=== PATIENT | male | born 1965 | race American Indian/Alaskan Native ===

== ENCOUNTER 2016-08-27 06:26 | Emergency (ER) | payer SELFPAY ==
[2016-08-27 07:20] LABS: Basophils % (Auto) 0.4 % (0.0-1.8); Eosinophils % (Auto) 2.2 % (0.0-4.3); Hematocrit 45.9 % (35.5-45.6); Hemoglobin 15.5 gm/dl (11.8-15.2); Mean Corpuscular HGB Conc 34 % (32-34); Mean Corpuscular Hemoglobin 35 pg (28-32); Mean Corpuscular Volume 102 fl (84-94); Platelet Count 246 K/mm3 (140-440); Red Blood Count 4.49 M/mm3 (3.65-5.03); Red Cell Distribution Width 13.4 % (13.2-15.2); White Blood Count 11.9 K/mm3 (4.5-11.0)
[2016-08-27 07:41] LABS: Creatine Kinase MB 3.1 ng/mL (0.0-4.0)
[2016-08-27 07:42] LABS: Alanine Aminotransferase 19 units/L (7-56); Albumin 3.5 g/dL (3.9-5); Albumin/Globulin Ratio 1.7 %; Alkaline Phosphatase 47 units/L (35-129); Anion Gap 17 mmol/L; BUN/Creatinine Ratio 11.11; Blood Urea Nitrogen 10 mg/dL (9-20); Calcium 8.7 mg/dL (8.4-10.2); Carbon Dioxide 25 mmol/L (22-30); Chloride 99.3 mmol/L (98-107); Creatine Kinase 141 units/L (55-170); Glucose 98 mg/dL (75-100); Sodium 137 mmol/L (137-145); Total Protein 5.6 g/dL (6.3-8.2)
[2016-08-27 17:05] LABS: Urine Drugs of Abuse Note Disclamer
[2016-08-27 17:14] LABS: Bilirubin,Urine NEG (Negative); Blood,Urine NEG (Negative); Ketones,Urine TR mg/dL (Negative); Leukocyte Esterase,Urine NEG (Negative); Mucus,Urine FEW /HPF; Nitrite,Urine NEG (Negative); Urobilinogen,Urine < 2.0 mg/dL (<2.0)
[2016-08-27] MEDS ORDERED: NACL 0.9% 1000 ML 1,000 ML IV ONE (17:30)
--- NOTE | 2016-08-27 17:32 | Emergency Department Report ---
HPI - General Chief Complaint: Syncope Time Seen by Provider: 08/27/16 16:47 - HPI HPI: The patient is 51 yo male whom presents for evaluation of abdominal pain and flank pain. The patient reports bilateral flank pain and epigastric abdominal pain for greater than the past 12 hours, a salicylate severity, crampy in quality, constant since onset. The patient also reports severe lightheadedness is exacerbated with physical activity, improved with lying down and rest, onset 21 hours ago last night. The patient shares that he is experiencing episode of syncope shortly after the onset of his lightheadedness. The patient denies fever , headache, neck pain or stiffness, current paresthesias, focal motor weakness, blurry vision, ear pain, tinnitus, chest pain, hemoptysis, dyspnea, abdominal pain, confusion or altered mental status, or recent URI or diarrhea. ED Past Medical Hx - Past Medical History Previous Medical History?: Yes Hx Hypertension: Yes (BORDERLINE-NO MEDS) Additional medical history: ULCERS - Surgical History Past Surgical History?: Yes Additional Surgical History: carpal tunnel - Social History Smoking Status: Current Every Day Smoker Substance Use Type: Alcohol - Medications Home Medications: Home Medications Medication Instructions Recorded Confirmed Last Taken Type Pantoprazole [Protonix] 40 mg PO BID #30 tablet 04/12/13 08/31/15 Unknown Rx hydrOXYzine PAMOATE [Vistaril] 50 mg PO Q6HR PRN #20 capsule 06/12/15 08/31/15 Unknown Rx Erythromycin [Erythromycin Ophth 10 applic OP TID #1 tube 08/31/15 Unknown Rx Oint] Cyclobenzaprine [Flexeril] 10 mg PO TID PRN #15 tablet 02/02/16 Unknown Rx Ibuprofen [Motrin] 800 mg PO Q8HR PRN #15 tablet 02/02/16 Unknown Rx Omeprazole Magnesium [PriLOSEC Otc] 20 mg PO BID #30 tab 08/27/16 Unknown Rx traMADol [Ultram 50 MG tab] 50 mg PO Q6HR PRN #15 tablet 08/27/16 Unknown Rx ED Review of Systems ROS: Stated complaint: PASSING OUT/ NECK PAIN/NUMBNESS FEET AND LEGS Other details as noted in HPI Constitutional: denies: fever; reports lightheadedness and syncope ENT: denies: throat or neck pain Respiratory: denies: cough, shortness of breath Cardiovascular: denies: chest pain Endocrine: denies unexplained weight loss or gain Gastrointestinal: reports abdominal pain, nausea Genitourinary: denies: dysuria Musculoskeletal: denies: leg swelling Skin: denies: rash Neurological: denies: headache Hematological/Lymphatic: denies: easy bleeding or easy bruising Psych: denies sadness or hopelessness Physical Exam - Physical Exam Vital Signs: Vital Signs 08/27/16 06:50 Temperature 98.3 F Pulse Rate 79 Respiratory 18 Rate Blood Pressure 108/78 O2 Sat by Pulse 100 Oximetry Physical Exam: General: well-nourished, well-developed, no acute distress Head: Normocephalic, atraumatic Eyes: normal sclera, PERRL, EOM intact ENT: Mucous membranes are pale and dry Neck: No neck stiffness, no cervical adenopathy Respiratory: Breath sounds equal bilaterally, no wheezing, rales, or rhonchi Cardio: S1 and S2 present, no murmurs, rubs, gallops, capillary refill is delayed Abdomen: Normoactive bowel sounds, soft abdomen, epigastric tenderness to palpation present, no rigidity, no guarding or rebound tenderness Chest WALL/Back: No tenderness to palpation of the chest wall, bilateral CVA tenderness with superficial palpation Musc: No pitting edema Skin: No rash Neuro: alert oriented x4, normal cognition, speech normal, no facial drooping, no uvula or tongue deviation on protrusion, no deficit with rotation of neck or shoulder shrug, no obvious gross motor deficit in the upper or lower extremities with flexion or extension at the shoulder, elbow, wrist, hip, knee, or ankle bilaterally, no obvious gross sensation deficit, 2+ symmetric reflexes on DTR testing, no coordination deficit with [id number] or [id number] testing, romberg negative, patient able to to ambulate without abnormal gait Psych: Normal affect ED Course Vital Signs 08/27/16 06:50 Temperature 98.3 F Pulse Rate 79 Respiratory 18 Rate Blood Pressure 108/78 O2 Sat by Pulse 100 Oximetry ED Medical Decision Making - Lab Data Result diagrams: 08/27/16 07:09 08/27/16 07:09 - Medical Decision Making The patient was seen and examined by myself. The patient is placed on a campus director and continuous pulse ox. On initial evaluation, the patient was found to be in no distress. Evaluation orders were placed. EKG is negative for findings suggestive of acute cardiac ischemia or infarct. The patient is given 1 L normal saline fluid bolus for treatment of dehydration, and a tablet of Tylenol 3 for his pain. Lab results reveal elevated hemoglobin and hematocrit, consistent with hemoconcentration and exam findings of dehydration, and otherwise labs were grossly unremarkable including normal LFTs, renal function, and urinalysis. The patient was reevaluated and reported that their symptoms were markedly improved. The patient is stable for discharge with outpatient follow-up. The patient is given follow-up and return instructions. The patient expressed understanding and agreed with the plan. The patient is discharged in stable condition. Critical care attestation.: If time is entered above; I have spent that time in minutes in the direct care of this critically ill patient, excluding procedure time. ED Disposition Clinical Impression: Dehydration, Bilateral flank pain, Abdominal pain, acute, epigastric, Orthostatic syncope Disposition: DISCHARGED TO HOME OR SELFCARE Is pt being admited?: No Does the pt Need Aspirin: No Condition: Stable Instructions: Syncope (ED), Acute Abdominal Pain (ED), Flank Pain (ED) Prescriptions: Omeprazole Magnesium [PriLOSEC Otc] 20 mg PO BID #30 tab traMADol [Ultram 50 MG tab] 50 mg PO Q6HR PRN #15 tablet PRN Reason: Pain Referrals: PRIMARY CARE, [Primary Care Provider] - 3-5 Days Time of Disposition: 17:32
[2016-08-27] MEDS ORDERED: PEPCID PO ONE (18:11)
[2016-08-27] MEDS ORDERED: TYLENOL #3 PO ONE (18:11)
[2016-08-27 19:09] VITALS: BP 134/92
== END 2016-08-27 19:09 | disposition home or self-care (01) ==
LOC: ED 06:26
DX: E86.0 Dehydration (principal); R55 Syncope and collapse; R10.13 Epigastric pain; F17.200 Nicotine dependence, unspecified, uncomplicated
CPT/HCPCS: 36415; 80053; 80307; 81001; 82550; 82553; 84484; 85025; 93005; 93010; 96360; 99284; J7030

== ENCOUNTER 2016-12-17 05:00 | Inpatient (IN) | payer OTHER ==
[2016-12-17] MEDS ORDERED: NITRO-BID 2% TP ONE ×2 (05:13→05:55)
[2016-12-17] MEDS ORDERED: MORPHINE ONE (05:17)
[2016-12-17] MEDS ORDERED: ZOFRAN ONE (05:17)
[2016-12-17] MEDS ORDERED: ZOFRAN IV ONE (05:56)
[2016-12-17] MEDS ORDERED: MORPHINE IV ONE ×2 (05:56→08:59)
[2016-12-17 06:47] LABS: Basophils % (Auto) 0.7 % (0.0-1.8); Eosinophils % (Auto) 2.2 % (0.0-4.3); Hematocrit 45.7 % (35.5-45.6); Hemoglobin 15.4 gm/dl (11.8-15.2); Mean Corpuscular HGB Conc 34 % (32-34); Mean Corpuscular Hemoglobin 34 pg (28-32); Mean Corpuscular Volume 101 fl (84-94); Platelet Count 312 K/mm3 (140-440); Red Blood Count 4.52 M/mm3 (3.65-5.03); Red Cell Distribution Width 13.9 % (13.2-15.2); White Blood Count 8.5 K/mm3 (4.5-11.0)
[2016-12-17 06:57] LABS: INR 1.65 (0.87-1.13)
[2016-12-17 07:02] LABS: Partial Thromboplastin Time 76.9 Sec. (24.2-36.6)
[2016-12-17 07:07] LABS: Anion Gap 18 mmol/L; Blood Urea Nitrogen 11 mg/dL (9-20); Calcium 8.6 mg/dL (8.4-10.2); Carbon Dioxide 20 mmol/L (22-30); Chloride 102.9 mmol/L (98-107); Creatine Kinase 184 units/L (55-170); Glucose 97 mg/dL (75-100); Potassium 3.8 mmol/L (3.6-5.0); Sodium 137 mmol/L (137-145)
--- NOTE | 2016-12-17 07:54 | XRay Report ---
AP CHEST: HISTORY: chest pain AP view of the chest demonstrates a normal mediastinal and cardiac contour with clear lungs and normal bony and soft tissue structures. IMPRESSION: Unremarkable AP chest.
[2016-12-17 07:58] LABS: Alanine Aminotransferase 17 units/L (7-56); Albumin 3.3 g/dL (3.9-5); Albumin/Globulin Ratio 1.3 %; Alkaline Phosphatase 49 units/L (35-129); Total Protein 5.8 g/dL (6.3-8.2)
[2016-12-17 07:59] LABS: Bilirubin,Direct < 0.2 mg/dL (0-0.2)
--- NOTE | 2016-12-17 10:15 | Emergency Department Report ---
ED Chest Pain HPI - General Chief Complaint: Chest Pain Stated Complaint: CP Time Seen by Provider: 12/17/16 07:38 Source: patient, EMS Mode of arrival: Stretcher Limitations: No Limitations - History of Present Illness Initial Comments: 51 yo Male with a past medical history hypertension, peptic ulcer disease, and tobacco use presents to the Hospital complaint is chest pain that started at 4 AM. Patient had waken up and started having left-sided chest pressure extending into his left arm with associated left hand paresthesias. Pain rated 8/10 in intensity. Waxes and wanes in intensity. Positive associated nausea, diaphoresis, shortness of breath, in asystole. Denies vomiting or calf tenderness. The patient traveled from [place] a couple weeks ago. No history of previous stress test or cardiac cath. His mother has significant CAD including bypass surgery and developed cardiac problems in her 50s. Patient has been noncompliant with his blood pressure medication 6 months. Severity scale (0 -10): 10 - Related Data Previous Rx's Medication Instructions Recorded Last Taken Type Pantoprazole [Protonix] 40 mg PO BID #30 tablet 04/12/13 Unknown Rx hydrOXYzine PAMOATE [Vistaril] 50 mg PO Q6HR PRN #20 capsule 06/12/15 Unknown Rx Erythromycin [Erythromycin Ophth 10 applic OP TID #1 tube 08/31/15 Unknown Rx Oint] Cyclobenzaprine [Flexeril] 10 mg PO TID PRN #15 tablet 02/02/16 Unknown Rx Ibuprofen [Motrin] 800 mg PO Q8HR PRN #15 tablet 02/02/16 Unknown Rx HYDROcodone/APAP 7.5-325 [Dille 1 each PO Q8HR PRN #12 tablet 08/27/16 Unknown Rx 7.5-325 mg TAB] Omeprazole Magnesium [PriLOSEC Otc] 20 mg PO BID #30 tab 08/27/16 Unknown Rx Allergies Allergy/AdvReac Type Severity Reaction Status Date / Time No Known Allergies Allergy Verified 08/30/15 17:32 Heart Score - HEART Score History: Slightly suspicious EKG: Normal Age: 45-65 Risk factors: > 3 risk factors or hx of atherosclerotic disease Troponin: < normal limit HEART Score: 3 ED Review of Systems ROS: Stated complaint: CP Other details as noted in HPI Comment: All other systems reviewed and negative Other: Constitutional: No fevers chills Eyes: No eye pain visual changes ENT: No ear pain or throat pain Neck: Denies pain Respiratory: Denies cough wheezing Cardiovascular: Denies palpitations, syncope GI: Denies abdominal pain, vomiting, diarrhea : Denies dysuria Musculoskeletal: Denies back pain Skin: Denies rash, lesions, erythema Neurologic: Denies headache, numbness, weakness Psychiatric: Denies suicidal ideation, hallucinations ED Past Medical Hx - Past Medical History Previous Medical History?: Yes Hx Hypertension: Yes (BORDERLINE-NO MEDS) Additional medical history: ULCERS - Surgical History Past Surgical History?: Yes Additional Surgical History: carpal tunnel - Social History Smoking Status: Current Every Day Smoker Substance Use Type: Alcohol - Medications Home Medications: Home Medications Medication Instructions Recorded Confirmed Last Taken Type Pantoprazole [Protonix] 40 mg PO BID #30 tablet 04/12/13 08/31/15 Unknown Rx hydrOXYzine PAMOATE [Vistaril] 50 mg PO Q6HR PRN #20 capsule 06/12/15 08/31/15 Unknown Rx Erythromycin [Erythromycin Ophth 10 applic OP TID #1 tube 08/31/15 Unknown Rx Oint] Cyclobenzaprine [Flexeril] 10 mg PO TID PRN #15 tablet 02/02/16 Unknown Rx Ibuprofen [Motrin] 800 mg PO Q8HR PRN #15 tablet 02/02/16 Unknown Rx HYDROcodone/APAP 7.5-325 [Dille 1 each PO Q8HR PRN #12 tablet 08/27/16 Unknown Rx 7.5-325 mg TAB] Omeprazole Magnesium [PriLOSEC Otc] 20 mg PO BID #30 tab 08/27/16 Unknown Rx ED Physical Exam - General Limitations: No Limitations - Other Other exam information: General: No limitations, patient is alert in no acute distress Head exam: Atraumatic, normocephalic Eyes exam: Normal appearance, pupils equal reactive to light, extraocular movements intact ENT: Moist mucous membrane, normal oropharynx Neck exam: Normal inspection, full range of motion, no meningismus nontender Respiratory exam: Clear to auscultation bilateral, no wheezes, rales, crackles Cardiovascular: Normal rate and rhythm, normal heart sounds, chest wall nontender Abdomen: Soft, nondistended, and nontender, with normal bowel sounds, no rebound, or guarding Extremity: Full range of motion normal inspection no deformity, no cough tenderness or edema Back: Normal Inspection, full range of motion, no tenderness Neurologic: Alert, oriented x3, cranial nerves intact, no motor or sensory deficit Psychiatric: normal affect, normal mood Skin: Warm, dry, intact ED Course Vital Signs 12/17/16 12/17/16 12/17/16 05:24 05:59 06:00 Temperature 98.1 F Pulse Rate 64 64 Respiratory 20 20 Rate Blood Pressure 150/100 Blood Pressure 160/110 [Left] O2 Sat by Pulse 100 Oximetry 12/17/16 12/17/16 12/17/16 07:08 07:12 09:17 Temperature 98.1 F 98 F 97.8 F Pulse Rate 70 52 L 54 L Respiratory 22 16 16 Rate Blood Pressure 151/100 Blood Pressure 153/94 150/96 [Left] O2 Sat by Pulse 100 100 100 Oximetry - Reevaluation(s) Reevaluation #1: 12/17/16 At time of my initial evaluation patient had removed his IV and removed his nitroglycerin patch and planed on leaving prior to my evaluation. I informed patient that I intended to admit him and he was agreeable to stay NATALYA score - Natalya Score Age > 65: (0) No Aspirin use within the Past 7 Days: (0) No 3 or more CAD Risk Factors: (1) Yes 2 or more Angina events in past 24 hrs: (1) Yes Known CAD with more than 50% Stenosis: (0) No Elevated Cardiac Markers: (0) No ST Deviation Greater than 0.5mm: (0) No NATALYA Score: 2 ED Medical Decision Making - Lab Data Result diagrams: 12/17/16 06:23 12/17/16 06:23 Lab Results 12/17/16 12/17/16 12/17/16 Range/Units 06:23 06:23 06:23 WBC 8.5 (4.5-11.0) K/mm3 RBC 4.52 (3.65-5.03) M/mm3 Hgb 15.4 H (11.8-15.2) gm/dl Hct 45.7 H (35.5-45.6) % MCV 101 H (84-94) fl MCH 34 H (28-32) pg MCHC 34 (32-34) % RDW 13.9 (13.2-15.2) % Plt Count 312 (140-440) K/mm3 Lymph % (Auto) 18.0 (13.4-35.0) % [place]gs % (Auto) 8.4 H (0.0-7.3) % Eos % (Auto) 2.2 (0.0-4.3) % Baso % (Auto) 0.7 (0.0-1.8) % Lymph # 1.5 (1.2-5.4) K/mm3 Twiggs # 0.7 (0.0-0.8) K/mm3 Eos # 0.2 (0.0-0.4) K/mm3 Baso # 0.1 (0.0-0.1) K/mm3 Seg Neutrophils % 70.7 H (40.0-70.0) % Seg Neutrophils # 6.0 (1.8-7.7) K/mm3 PT 19.5 H (12.2-14.9) Sec. INR 1.65 H (0.87-1.13) APTT 76.9 H* (24.2-36.6) Sec. D-Dimer (0-234) ng/mlDDU Sodium 137 (137-145) mmol/L Potassium 3.8 (3.6-5.0) mmol/L Chloride 102.9 (98-107) mmol/L Carbon Dioxide 20 L (22-30) mmol/L Anion Gap 18 mmol/L BUN 11 (9-20) mg/dL Creatinine 1.0 (0.8-1.5) mg/dL Estimated GFR > 60 ml/min BUN/Creatinine Ratio 11.00 % Glucose 97 (75-100) mg/dL Calcium 8.6 (8.4-10.2) mg/dL Total Bilirubin (0.1-1.2) mg/dL Direct Bilirubin (0-0.2) mg/dL AST (5-40) units/L ALT (7-56) units/L Alkaline Phosphatase (35-129) units/L Total Creatine Kinase 184 H (55-170) units/L CK-MB (CK-2) 3.0 (0.0-4.0) ng/mL CK-MB (CK-2) Rel Index 1.6 (0-4) Troponin T 0.023 (0.00-0.029) ng/mL Total Protein (6.3-8.2) g/dL Albumin (3.9-5) g/dL Albumin/Globulin Ratio % 12/17/16 12/17/16 Range/Units 06:23 06:23 WBC (4.5-11.0) K/mm3 RBC (3.65-5.03) M/mm3 Hgb (11.8-15.2) gm/dl Hct (35.5-45.6) % MCV (84-94) fl MCH (28-32) pg MCHC (32-34) % RDW (13.2-15.2) % Plt Count (140-440) K/mm3 Lymph % (Auto) (13.4-35.0) % Twiggs % (Auto) (0.0-7.3) % Eos % (Auto) (0.0-4.3) % Baso % (Auto) (0.0-1.8) % Lymph # (1.2-5.4) K/mm3 Twiggs # (0.0-0.8) K/mm3 Eos # (0.0-0.4) K/mm3 Baso # (0.0-0.1) K/mm3 Seg Neutrophils % (40.0-70.0) % Seg Neutrophils # (1.8-7.7) K/mm3 PT (12.2-14.9) Sec. INR (0.87-1.13) APTT (24.2-36.6) Sec. D-Dimer < 135 (0-234) ng/mlDDU Sodium (137-145) mmol/L Potassium (3.6-5.0) mmol/L Chloride (98-107) mmol/L Carbon Dioxide (22-30) mmol/L Anion Gap mmol/L BUN (9-20) mg/dL Creatinine (0.8-1.5) mg/dL Estimated GFR ml/min BUN/Creatinine Ratio % Glucose (75-100) mg/dL Calcium (8.4-10.2) mg/dL Total Bilirubin 0.40 (0.1-1.2) mg/dL Direct Bilirubin < 0.2 (0-0.2) mg/dL AST 18 (5-40) units/L ALT 17 (7-56) units/L Alkaline Phosphatase 49 (35-129) units/L Total Creatine Kinase (55-170) units/L CK-MB (CK-2) (0.0-4.0) ng/mL CK-MB (CK-2) Rel Index (0-4) Troponin T (0.00-0.029) ng/mL Total Protein 5.8 L (6.3-8.2) g/dL Albumin 3.3 L (3.9-5) g/dL Albumin/Globulin Ratio 1.3 % - EKG Data -: EKG Interpreted by Me (nsr [id number], lae, no stemi) - EKG Data When compared to previous EKG there are: no significant change (compared to 08/21 ) - Radiology Data Radiology results: report reviewed (chest x-ray: No acute findings) - Medical Decision Making Patient has significant cardiac risk factors and medication noncompliance. No signs of ST elevation IA. Admit to the hospital for further cardiac testing - Differential Diagnosis PE, IA, angina, GERD, PUD, atypical chest Critical Care Time: No Critical care attestation.: If time is entered above; I have spent that time in minutes in the direct care of this critically ill patient, excluding procedure time. ED Disposition Clinical Impression: Chest pain, HTN (hypertension), Smoker, Noncompliance with medication regimen Disposition: OP ADMIT IP TO THIS HOSP Is pt being admited?: Yes Condition: Stable Time of Disposition: 10:14 ([place]/hospitalist)
[2016-12-17] MEDS ORDERED: TYLENOL PO PRN (10:51)
[2016-12-17] MEDS ORDERED: DULCOLAX PR PRN (10:51)
[2016-12-17] MEDS ORDERED: NITROSTAT SL PRN (10:54)
[2016-12-17] MEDS ORDERED: ZOFRAN IM PRN (10:54)
--- NOTE | 2016-12-17 10:56 | History and Physical Report ---
<JAGDEEP VILLEDA - Last Filed: 12/17/16 14:00> History of Present Illness Date of examination: 12/17/16 Date of admission: 12/17/2016 Chief complaint: Chest pain History of present illness: Patient is a 51 years old black Male with a past medical history hypertension, peptic ulcer disease, and tobacco use presents to the Hospital complaint is chest pain. He states that the pain began this morning around 4:00AM intermittent left side chest pain. The pain was located over his substerna somewhat in the left chest area . Patient described as, pressure pain. The pain lasted for few hours and he states that pain was radiating to left arm and neck. Also the patient did experience some tingling and numbness in his left arm after the pain ceased. No alleviating and aggravating factors. The painful episodes did not increase in intensity or severity during this time. The patient denies chest pain at present time. Patient reported shortness of breath and diaphoresis including feeling clammy. He continued to have several episodes of the pain throughout the night, he decided to come to the emergency department. He denies vomiting during these episodes of pain.No history of previous stress test or cardiac cath. Patient has been noncompliant with his blood pressure medication 6 months. Past History Past Medical History: GERD, hypertension Past Surgical History: No surgical history Social history: lives with family, smoking. denies: alcohol abuse Family history: CAD, hypertension Medications and Allergies Allergies Allergy/AdvReac Type Severity Reaction Status Date / Time No Known Allergies Allergy Verified 08/30/15 17:32 Home Medications Medication Instructions Recorded Confirmed Last Taken Type Multivit-Minerals/FA/Lycopene [One 1 each PO DAILY 12/17/16 12/17/16 12/16/16 History Daily [facility] Tablet] Ranitidine HCl [Zantac 150 MG TAB] 150 mg PO DAILY 12/17/16 12/17/16 12/16/16 History Active Meds: Active Medications Acetaminophen (Tylenol) 650 mg PO Q4H PRN PRN Reason: Pain MILD(1-3)/Fever >100.5/LERMA Bisacodyl (Dulcolax) 10 mg NV QDAY PRN PRN Reason: Constipation unrelieved by MOM Enoxaparin Sodium (Lovenox) 40 mg SUB-Q QDAY [facility] Morphine Sulfate (Morphine) 2 mg IV Q4H PRN PRN Reason: Pain, Moderate (4-6) Nitroglycerin (Nitrostat) 0.4 mg SL .Q5MIN PRN PRN Reason: Chest Pain Ondansetron HCl (Zofran) 4 mg IM Q4H PRN PRN Reason: Nausea And Vomiting Pantoprazole Sodium (Protonix) 40 mg IV BID LAVELL Review of Systems Constitutional: sweats, no weight loss, no weight gain Ears, nose, mouth and throat: no ear pain, no ear discharge, no tinnitis, no decreased hearing, no nose pain, no nasal congestion Cardiovascular: chest pain, lightheadedness, shortness of breath, no orthopnea, no palpitations, no rapid/irregular heart beat Respiratory: no cough with sputum, no excessive sputum, no hemoptysis Gastrointestinal: nausea, no vomiting, no diarrhea, no constipation Genitourinary Male: no dysuria, no flank pain, no discharge, no urinary frequency, no urinary hesitancy Rectal: no pain, no incontinence, no bleeding Musculoskeletal: no neck stiffness, no neck pain, no shooting arm pain, no arm numbness/tingling Integumentary: no rash, no pruritis, no redness, no sores, no wounds Neurological: no transient paralysis, no paralysis, no weakness, no parathesias Psychiatric: no change in sleep habits, no sleep disturbances, no insomnia, no hypersomnia, no change in appetite Endocrine: no heat intolerance, no polyphagia, no excessive thirst, no polydipsia Hematologic/Lymphatic: no easy bruising, no easy bleeding Allergic/Immunologic: no urticaria, no allergic rhinitis, no wheezing Exam - Constitutional Vitals: Temp Pulse Resp BP Pulse Ox 97.8 F 54 L 16 150/96 100 12/17/16 09:17 12/17/16 09:17 12/17/16 09:17 12/17/16 09:17 12/17/16 09:17 General appearance: Present: no acute distress - EENT Eyes: Present: PERRL ENT: hearing intact, clear oral mucosa - Neck Neck: Present: supple - Respiratory Respiratory effort: normal Respiratory: bilateral: CTA - Cardiovascular Heart rate: 64 Rhythm: regular Heart Sounds: Present: S1 & S2 - Extremities Extremities: no ischemia Peripheral Pulses: within normal limits - Abdominal General gastrointestinal: Present: soft, non-tender Male genitourinary: Present: deferred - Rectal Rectal Exam: deferred - Integumentary Integumentary: Present: clear, warm, dry - Musculoskeletal Musculoskeletal: strength equal bilaterally - Psychiatric Psychiatric: appropriate mood/affect - Neurologic Neurologic: CNII-XII intact - Allied Health Allied health notes reviewed: nursing Results - Labs CBC & Chem 7: 12/17/16 06:23 12/17/16 06:23 Labs: Laboratory Last Values WBC 8.5 K/mm3 (4.5-11.0) 12/17/16 06:23 RBC 4.52 M/mm3 (3.65-5.03) 12/17/16 06:23 Hgb 15.4 gm/dl (11.8-15.2) H 12/17/16 06:23 Hct 45.7 % (35.5-45.6) H 12/17/16 06:23 MCV 101 fl (84-94) H 12/17/16 06:23 MCH 34 pg (28-32) H 12/17/16 06:23 MCHC 34 % (32-34) 12/17/16 06:23 RDW 13.9 % (13.2-15.2) 12/17/16 06:23 Plt Count 312 K/mm3 (140-440) 12/17/16 06:23 Lymph % (Auto) 18.0 % (13.4-35.0) 12/17/16 06:23 Coles % (Auto) 8.4 % (0.0-7.3) H 12/17/16 06:23 Eos % (Auto) 2.2 % (0.0-4.3) 12/17/16 06:23 Baso % (Auto) 0.7 % (0.0-1.8) 12/17/16 06:23 Lymph # 1.5 K/mm3 (1.2-5.4) 12/17/16 06:23 Coles # 0.7 K/mm3 (0.0-0.8) 12/17/16 06:23 Eos # 0.2 K/mm3 (0.0-0.4) 12/17/16 06:23 Baso # 0.1 K/mm3 (0.0-0.1) 12/17/16 06:23 Seg Neutrophils % 70.7 % (40.0-70.0) H 12/17/16 06:23 Seg Neutrophils # 6.0 K/mm3 (1.8-7.7) 12/17/16 06:23 PT 19.5 Sec. (12.2-14.9) H 12/17/16 06:23 INR 1.65 (0.87-1.13) H 12/17/16 06:23 APTT 76.9 Sec. (24.2-36.6) H* 12/17/16 06:23 D-Dimer < 135 ng/mlDDU (0-234) 12/17/16 06:23 Sodium 137 mmol/L (137-145) 12/17/16 06:23 Potassium 3.8 mmol/L (3.6-5.0) 12/17/16 06:23 Chloride 102.9 mmol/L (98-107) 12/17/16 06:23 Carbon Dioxide 20 mmol/L (22-30) L 12/17/16 06:23 Anion Gap 18 mmol/L 12/17/16 06:23 BUN 11 mg/dL (9-20) 12/17/16 06:23 Creatinine 1.0 mg/dL (0.8-1.5) 12/17/16 06:23 Estimated GFR > 60 ml/min 12/17/16 06:23 BUN/Creatinine Ratio 11.00 % 12/17/16 06:23 Glucose 97 mg/dL (75-100) 12/17/16 06:23 Calcium 8.6 mg/dL (8.4-10.2) 12/17/16 06:23 Total Bilirubin 0.40 mg/dL (0.1-1.2) 12/17/16 06:23 Direct Bilirubin < 0.2 mg/dL (0-0.2) 12/17/16 06:23 AST 18 units/L (5-40) 12/17/16 06:23 ALT 17 units/L (7-56) 12/17/16 06:23 Alkaline Phosphatase 49 units/L (35-129) 12/17/16 06:23 Total Creatine Kinase 184 units/L (55-170) H 12/17/16 06:23 CK-MB (CK-2) 3.0 ng/mL (0.0-4.0) 12/17/16 06:23 CK-MB (CK-2) Rel Index 1.6 (0-4) 12/17/16 06:23 Troponin T 0.023 ng/mL (0.00-0.029) 12/17/16 06:23 Total Protein 5.8 g/dL (6.3-8.2) L 12/17/16 06:23 Albumin 3.3 g/dL (3.9-5) L 12/17/16 06:23 Albumin/Globulin Ratio 1.3 % 12/17/16 06:23 - Imaging and Cardiology Chest x-ray: image reviewed (unremarkable) Assessment and Plan Assessment and plan: Patient is a 51 years old black Male with a past medical history hypertension, peptic ulcer disease, and tobacco use presents to the Hospital complaint is chest pain. He states that the pain began this morning around 4:00AM intermittent left side chest pain. Chest Pain We will admit to telemetry floor. EKG normal sinus rate [address] elevation or T-wave inversion. We will get another EKG ordered for a changes that have taken since the first one obtained Negative cardiac enzyme X3 Start on aspirin Nitroglycerin when necessary Morphine ordered for pain Stress test ordered. Hypertension Continue on home antihypertensive medication IV hydralazine for SBP >160 Closely monitor blood pressure peptic ulcer disease Resume Zantac Started on IV Protonix DVT prophylaxis Lovenox Advance Directives: Yes VTE prophylaxis?: Chemical Contraindication Mechanical VTE Prophylaxis: Treatment Not Indicated Plan of care discussed with patient/family: Yes <TAM FAIR - Last Filed: 12/17/16 17:31> History of Present Illness Date of admission: 12/17/16 10:51 Medications and Allergies Active Meds: Active Medications Acetaminophen (Tylenol) 650 mg PO Q4H PRN PRN Reason: Pain MILD(1-3)/Fever >100.5/LERMA Aspirin (Aspirin) 325 mg PO DAILY [facility] Bisacodyl (Dulcolax) 10 mg NV QDAY PRN PRN Reason: Constipation unrelieved by MOM Enoxaparin Sodium (Lovenox) 40 mg SUB-Q QDAY [facility] Famotidine (Pepcid) 20 mg IV BID LAVELL Morphine Sulfate (Morphine) 2 mg IV Q4H PRN PRN Reason: Pain, Moderate (4-6) Last Admin: 12/17/16 13:30 Dose: 2 mg Multivitamins (Theragran Tab) 1 each PO DAILY [facility] Nitroglycerin (Nitrostat) 0.4 mg SL .Q5MIN PRN PRN Reason: Chest Pain Ondansetron HCl (Zofran) 4 mg IM Q4H PRN PRN Reason: Nausea And Vomiting Exam - Constitutional Vitals: Temp Pulse Resp BP Pulse Ox 97.8 F 64 16 120/70 100 12/17/16 13:32 12/17/16 13:32 12/17/16 13:32 12/17/16 13:32 12/17/16 13:32 Results - Labs CBC & Chem 7: 12/17/16 06:23 12/17/16 06:23 Labs: Laboratory Last Values WBC 8.5 K/mm3 (4.5-11.0) 12/17/16 06:23 RBC 4.52 M/mm3 (3.65-5.03) 12/17/16 06:23 Hgb 15.4 gm/dl (11.8-15.2) H 12/17/16 06:23 Hct 45.7 % (35.5-45.6) H 12/17/16 06:23 MCV 101 fl (84-94) H 12/17/16 06:23 MCH 34 pg (28-32) H 12/17/16 06:23 MCHC 34 % (32-34) 12/17/16 06:23 RDW 13.9 % (13.2-15.2) 12/17/16 06:23 Plt Count 312 K/mm3 (140-440) 12/17/16 06:23 Lymph % (Auto) 18.0 % (13.4-35.0) 12/17/16 06:23 Coles % (Auto) 8.4 % (0.0-7.3) H 12/17/16 06:23 Eos % (Auto) 2.2 % (0.0-4.3) 12/17/16 06:23 Baso % (Auto) 0.7 % (0.0-1.8) 12/17/16 06:23 Lymph # 1.5 K/mm3 (1.2-5.4) 12/17/16 06:23 Coles # 0.7 K/mm3 (0.0-0.8) 12/17/16 06:23 Eos # 0.2 K/mm3 (0.0-0.4) 12/17/16 06:23 Baso # 0.1 K/mm3 (0.0-0.1) 12/17/16 06:23 Seg Neutrophils % 70.7 % (40.0-70.0) H 12/17/16 06:23 Seg Neutrophils # 6.0 K/mm3 (1.8-7.7) 12/17/16 06:23 PT 19.5 Sec. (12.2-14.9) H 12/17/16 06:23 INR 1.65 (0.87-1.13) H 12/17/16 06:23 APTT 76.9 Sec. (24.2-36.6) H* 12/17/16 06:23 D-Dimer < 135 ng/mlDDU (0-234) 12/17/16 06:23 Sodium 137 mmol/L (137-145) 12/17/16 06:23 Potassium 3.8 mmol/L (3.6-5.0) 12/17/16 06:23 Chloride 102.9 mmol/L (98-107) 12/17/16 06:23 Carbon Dioxide 20 mmol/L (22-30) L 12/17/16 06:23 Anion Gap 18 mmol/L 12/17/16 06:23 BUN 11 mg/dL (9-20) 12/17/16 06:23 Creatinine 1.0 mg/dL (0.8-1.5) 12/17/16 06:23 Estimated GFR > 60 ml/min 12/17/16 06:23 BUN/Creatinine Ratio 11.00 % 12/17/16 06:23 Glucose 97 mg/dL (75-100) 12/17/16 06:23 Calcium 8.6 mg/dL (8.4-10.2) 12/17/16 06:23 Total Bilirubin 0.40 mg/dL (0.1-1.2) 12/17/16 06:23 Direct Bilirubin < 0.2 mg/dL (0-0.2) 12/17/16 06:23 AST 18 units/L (5-40) 12/17/16 06:23 ALT 17 units/L (7-56) 12/17/16 06:23 Alkaline Phosphatase 49 units/L (35-129) 12/17/16 06:23 Total Creatine Kinase 184 units/L (55-170) H 12/17/16 06:23 CK-MB (CK-2) 3.0 ng/mL (0.0-4.0) 12/17/16 06:23 CK-MB (CK-2) Rel Index 1.6 (0-4) 12/17/16 06:23 Troponin T 0.023 ng/mL (0.00-0.029) 12/17/16 06:23 Total Protein 5.8 g/dL (6.3-8.2) L 12/17/16 06:23 Albumin 3.3 g/dL (3.9-5) L 12/17/16 06:23 Albumin/Globulin Ratio 1.3 % 12/17/16 06:23 Assessment and Plan Assessment and plan: I saw and evaluated the patient. I agree with the findings and the plan of care as documented in the Nurse Practitioner's H/Pnote, with the following corrections, patient is on famotidine, not on protonix. Advance Directives: Yes VTE prophylaxis?: Chemical Plan of care discussed with patient/family: Yes
--- NOTE | 2016-12-17 11:34 | Admit Criteria Form ---
Admission Criteria Documentation: CARDIOLOGY GRG Clinical Indications for Admission to Inpatient Care ([place]/check or initial the applicable condition/criteria) Hospital admission is needed for appropriate care of the patient because of ANY ONE of the following: [ ] I. Hemodynamic instability as indicated by ALL of the following (1)(2)(3) (4)(5)(6)(7)(8)(9)(10) [ ]a) Vital sign abnormality not readily corrected by appropriate treatment with 12-24 hours for ANY ONE: [ ]i) Hypotension that persists despite appropriate treatment (eg, volume repletion) [ ]ii) Tachycardiathat persists despite appropriate tx ( e.g., analgesia, fluids, sedation as indicated [ ]iii) Orthostatic vital sign changes that persists despite appropriate treatment (eg, volume repletion) [ ]b) Vital sign abnormailty that is severe indicated by ANY ONE of the following: [ ]i) Inadequate perfusion indicated by ANY ONE of the following: [ ] 1) Lactic acidosis (> 2 mmol/L) [ ] 2) New abnormal capillary refill (> 3 seconds) [ ] 3) Reduced urine output [ ] 4) New altered mental status [ ] 5) Myocardial Ischemia [ ] 6) Other metabolic acidosis (arterial pH <7.35 ) not otherwise explained. [ ]ii) Mean arterial pressure[A] less than 60 mm Hg [ ]iii) Mean arterial pressure[A] less than 70 mm Hg after 30 minutes of appropriate treatment (eg, fluid resuscitation) [ ]iv) Sustained heart rate greater than 120 beats per minute in adult or child 6 years or older[B] [ ]v) IV inotropic or vasopressor medication required to maintain adequate blood pressure or perfusion [ ] II. Severe heart failure as indicated by ANY ONE of the following(17)(18) [ ]a) Respiratory distress [ ]b) Hypotension [ ]c) Debilitating anasarca refractory to therapy (eg, tissue breakdown with infection)[C](19) [ ]d) Cardiac arrhythmias of immediate concern [ ]e) Myocardial ischemia [ ] III. Cardiac arrhythmias or findings of immediate concern indicated by ANY ONE of the following (21)(22): [ ] a) Heart rhythms that are inherently dangerous or unstable indicated by ANY ONE of the following (23)(24)(25): [ ] i) Resuscitated ventricular fibrillation or cardiac arrest [ ] ii) Ventricular escape rhythm [ ] iii) Sustained ventricular tachycardia (30 seconds or more of ventricular rhythm at greater than 100 beats per minute) [ ] iv) Nonsustained ventricular tachycardia and ANY ONE of the following: [ ] 1) Suspected cardiac ischemia as cause or consequence of ventricular tachycardia [ ] 2) Acute myocarditis [ ] b) Unstable cardiac conduction defects indicated by ANY ONE of the following(25)(26)(27) [ ] i) Type II second-degree atrioventricular block [ ]ii) Third-degree atrioventricular block [ ]iii) New-onset left bundle branch block with suspected myocardial ischemia [ ]c) Any heart rhythm and ANY ONE of the following (23)(24)(28)(29) (30) [ ] i) Continuous long-term ECG monitoring needed (e.g., initiation of drug requiring monitoring for more than 24 hours) [ ] ii) Patient has automatic implanted cardioverter defibrillator that is repeatedly firing, malfunctioning, or in need of immediate adjustment of settings beyond the scope of ambulatory or observation care [ ]d) Heart rhythms of concern due to ANY ONE of the following: [ ] i) Hypotension [ ] ii) Respiratory distress [ ] iii) Association with other significant symptoms (e.g., bradycardia with syncope or ongoing dizziness, supraventricular tachycardia with chest pain (28)(29)(31) [ ] IV. Monitoring for cardiac contusion beyond the scope of observation care needed [A](32)(33)(34) [ ] V. Surgical or device complication (e.g., valve replacement complication , ICD disfunction or pacemaker dysfunction) (49)(50)(51)(52)(53)(54) [ ] . Inpatient palliative care needed. [F](51)(52) Also use Inpatient Palliative Care Criteria [ ] VII. Nonbacterial thrombotic (marantic) endocarditis(43)(44)(55)(56)(57) [X] VIII. Cardiology condition, symptom, or finding for which emergency and observation care has failed or are not considered appropriate. [ ] IX. Acute valvular disease requiring inpatient as indicated by ANY ONE of the following (40)(41) [ ]a) Acute valvular regurgitation (42) [ ]b) Noninfectious valvulitis (43)(44) [ ]c) Obstructive valve thrombosis (45)(46) [ ]d) Paravalvular leak(47)(48) [ ]e) Other significant valvular disorder remaining after emergency or observation level of care (as appropriate) [ ]X. Pericardial disease requiring inpatient treatment as indicated by ANY ONE of the following (35)(36)(37)(38) [ ]a) Suspected tamponade [ ]b) Hemopericardium [ ]c) Other significant pericardial disorder remaining after emergency or observation level of care (as appropriate)(39) [ ] XI. Cardiac ischemia beyond scope of emergency and observation care. [ ] XII. Cyanotic heart disease requiring inpatient care as indicated by 1 or more of the following(58)(59)(60): [ ]a) Acute onset of hypoxemia [ ]b) Exacerbation [ ] XIII. Hypertension requiring inpatient treatment as indicated by ANYONE of the following(11)(12)(13)(14): [ ]a) Severe hypertension (SBP greater than 180 mm Hg or DBP greater than 110 mm Hg, or greater than the 95th percentile for age, gender, and height in pediatric patients) that cannot be controlled (eg, to SBP less than 160 mm Hg and DBP less than 100 mm Hg) by emergency department or observation care treatment(15) [ ]b) Acute end organ damage secondary to hypertension (SBP greater than 140 mm Hg or DBP greater than 90 mm Hg) as indicated by ANYONE of the following: [ ] i) Hypertensive encephalopathy (eg, Altered mental status)(16) [ ] ii) Cerebral infarction [ ] iii) Intracranial hemorrhage [ ] iv) Myocardial ischemia or infarction [ ] v) Heart failure (eg, pulmonary edema) [ ] vi) Aortic dissection [ ] vii) Increased creatinine (new) with reduction of more than 50% in estimated glomerular filtration rate from baseline [ ] viii) Papilledema [ ] ix) Retinal hemorrhage [ ] x) Microangiopathic hemolytic anemia [ ] xi) Seizure [ ] xii) Other significant finding secondary to hypertension [ ] XIV. Complications of transplanted heart indicated by ANY ONE of the following(61): [ ]a) Acute graft rejection requiring inpatient management (eg, intravenous imunosuppression)(62)(63) [ ]b) Acute graft heart failure indicated by ANY ONE of the following(64): [ ] i) Hemodynamic instability [ ] ii) Cardiac arrhythmias of immediate concern [ ] iii) Pulmonary edema that is very severe (eg, mechanical ventilation needed, imminent or likely, need for 100% oxygen to keep oxygen saturation above 90%) [ ] iv) Pulmonary edema that is persistent as indicated by ALL of the following: [ ] 1) New need for oxygen therapy to keep oxygen saturation above 90 % (or increased FiO2 need from baseline) [ ] 2) Has not improved sufficiently with emergency department or observation care IV diuretics or other heart failure treatments[E]. [ ] iv) Altered mental status that is severe or persistent [ ] iv) Increased creatinine (new on laboratory test) with reduction of more than 50% in estimated glomerular filtration rate from baseline [ ] iv) Progressively (ongoing) rising creatinine (known from past laboratory test) with reduction of more than 25% in estimated glomerular filtration rate from baseline [ ] iv) Acute renal failure [ ] iv) Acute peripheral ischemia (eg, examination shows pulseless, cool, mottled, or cyanotic extremity) [ ] iv) Pulmonary artery catheter monitoring needed [ ] iv) Other sign or symptom of heart failure requiring inpatient treatment (ie, too severe or not responsive to outpatient and observation care treatment) [ ]c) Infection requiring inpatient management (eg, Hemodynamic instability, need for intravenous antimicrobial treatment)(66)(67)(68)(69)(70) [ ]d) Cardiac allograft vasculopathy requiring inpatient management (eg evidence of cardiacischemia)(71) [ ]e) Other complication of transplanted heart (eg, stroke, severe pulmonary hypertension, severe valvular dysfunction) requiring inpatient management(72) The original [employer] content created by [employer] has been revised. The portions of the content which have been revised are identified through the use of italic text or in bold, and [facility] has neither reviewed nor approved the modified material. All other unmodified content is copyright [employer] [facility] [employer]. Please see references footnoted in the original [facility] [facility] edition 2017 Admission Criteria Met: Yes
[2016-12-17] MEDS: MORPHINE IV PRN ×3 (13:30→22:44)
[2016-12-17] MEDS ORDERED: PROTONIX IV SCH (22:00)
[2016-12-17] MEDS ORDERED: APRESOLINE IV PRN (22:09)
[2016-12-17] MEDS: PEPCID IV SCH (22:43)
[2016-12-18 09:04] LABS: Creatine Kinase MB 18.9 ng/mL (0.0-4.0)
[2016-12-18] MEDS ORDERED: NON-FORMULARY (Ranitidine Hcl [Zantac 150 Mg Tab] 150 MG) PO SCH (10:00)
[2016-12-18] MEDS ORDERED: MULTIVIT MINERALS PO SCH (10:00)
[2016-12-18] MEDS ORDERED: LYCOPENE PO SCH (10:00)
[2016-12-18] MEDS ORDERED: LOVENOX SUB-Q SCH (10:00)
[2016-12-18] MEDS ORDERED: [UNRECOGNIZED DRUG - OTHER] PO SCH (10:00)
--- NOTE | 2016-12-18 11:12 | Consultation ---
History of Present Illness Consult date: 12/18/16 Requesting physician: TAM FAIR Consult reason: chest pain History of present illness: This is a 51-year-old -[place]wegian gentleman with history of hypertension noncompliant with medications a smoker and smokes marijuana presents for last several weeks of chest pain with exertion on and off pressure-like no radiation relieved with rest patient presents ED with some mild visual disturbance with elevated blood pressure patient's has elevated troponin with normal renal function patient's stress test shows inferior apical ischemia with normal LV function patient denies any nausea vomiting or any visual disturbances or strokelike symptoms now melena Past History Past Medical History: GERD, hypertension Past Surgical History: No surgical history Social history: lives with family, smoking, other (smokes marijuana). denies: alcohol abuse Family history: CAD, hypertension Medications and Allergies Allergies Allergy/AdvReac Type Severity Reaction Status Date / Time No Known Allergies Allergy Verified 08/30/15 17:32 Home Medications Medication Instructions Recorded Confirmed Last Taken Type Multivit-Minerals/FA/Lycopene [One 1 each PO DAILY 12/17/16 12/17/16 12/16/16 History Daily [facility] Tablet] Ranitidine HCl [Zantac 150 MG TAB] 150 mg PO DAILY 12/17/16 12/17/16 12/16/16 History Active Meds: Active Medications Acetaminophen (Tylenol) 650 mg PO Q4H PRN PRN Reason: Pain MILD(1-3)/Fever >100.5/LERMA Aspirin (Aspirin) 325 mg PO DAILY [facility] Bisacodyl (Dulcolax) 10 mg MT QDAY PRN PRN Reason: Constipation unrelieved by MOM Enoxaparin Sodium (Lovenox) 40 mg SUB-Q QDAY [facility] Famotidine (Pepcid) 20 mg IV BID [facility] Last Admin: 12/17/16 22:43 Dose: 20 mg Hydralazine HCl (Apresoline) 5 mg IV Q6H PRN PRN Reason: HTN Last Admin: 12/17/16 22:44 Dose: 5 mg Influenza Virus Vaccine Quadrival (Fluarix Quad [id number](36 Mos+)) 0.5 ml IM .ONCE ONE Stop: 12/18/16 12:01 Morphine Sulfate (Morphine) 2 mg IV Q4H PRN PRN Reason: Pain, Moderate (4-6) Last Admin: 12/17/16 22:44 Dose: 2 mg Multivitamins (Theragran Tab) 1 each PO DAILY [facility] Nitroglycerin (Nitrostat) 0.4 mg SL .Q5MIN PRN PRN Reason: Chest Pain Ondansetron HCl (Zofran) 4 mg IM Q4H PRN PRN Reason: Nausea And Vomiting Review of Systems All systems: negative (except HPI) Physical Examination Vital Signs Temp Pulse Resp BP Pulse Ox 98.1 F 64 20 160/110 100 12/17/16 05:24 12/17/16 05:24 12/17/16 05:24 12/17/16 05:24 12/17/16 05:24 General appearance: no acute distress, well-nourished HEENT: Positive: PERRL, Mucus Membranes Moist Neck: Positive: neck supple, trachea midline Cardiac: Positive: Reg Rate and Rhythm, S1/S2. Negative: Audible Murmur Lungs: Positive: clear to auscultation, Normal Breath Sounds Neuro: Positive: Grossly Intact Abdomen: Positive: Soft, Active Bowel Sounds. Negative: Tender, Distended Male genitourinary: Positive: normal Skin: Positive: Clear Incision: Cardiac Cath Site Musculoskeletal: No Pain, Normal Range of Motion Extremities: Present: normal. Absent: edema Results 12/17/16 06:23 12/17/16 06:23 Cardiac Enzymes 12/18/16 Range/Units 08:28 CK-MB (CK-2) 18.9 H (0.0-4.0) ng/mL Lipids 12/18/16 Range/Units 08:28 Triglycerides 107 (2-149) mg/dL Cholesterol 198 (50-199) mg/dL HDL Cholesterol 69 H (40-59) mg/dL Cholesterol/HDL Ratio 2.86 % EKG interpretations - Telemetry EKG Rhythm: Sinus Rhythm (normal sinus rhythm nonspecific ST-T wave) Assessment and Plan nstemi type 2 htn accelerated Hyperlipidemia Smoker Abnormal stress test Recommend IV heparin and aspirin beta [place] statin medications cardiac catheterization given the abnormal cardiac enzymes and abnormal stress test explained the risk and benefits of cardiac catheterization patient expresses understanding
[2016-12-18] MEDS ORDERED: Fluarix Quad 2017-2018(36 MOS+) IM ONE (12:00)
[2016-12-18] MEDS ORDERED: HEPARIN 10,000 UNITS/10 ML IV ONE ×2 (12:00→15:00)
[2016-12-18] MEDS ORDERED: NACL 0.9% 500 ML 500 ML IV SCH (12:00)
[2016-12-18] MEDS: ASPIRIN PO SCH (12:21)
[2016-12-18] MEDS: PEPCID IV SCH ×2 (12:21→22:12)
[2016-12-18] MEDS: MORPHINE IV PRN ×2 (12:21→19:53)
[2016-12-18] MEDS: THERAGRAN Tab PO SCH (12:22)
[2016-12-18] MEDS: HEPARIN/ 0.45% NACL-25,000 UNIT/500 ML 25,000 UNIT/500 ML BAG IV SCH (14:26)
[2016-12-18] MEDS: LOPRESSOR PO SCH ×2 (14:30→22:11)
[2016-12-18 14:45] LABS: Hematocrit 44.7 % (35.5-45.6); Hemoglobin 15.1 gm/dl (11.8-15.2)
[2016-12-18 14:55] LABS: INR 1.01 (0.87-1.13)
[2016-12-18 14:56] LABS: Partial Thromboplastin Time 25.6 Sec. (24.2-36.6)
[2016-12-18] MEDS: ISORDIL TITRADOSE PO SCH ×2 (16:11→22:11)
--- NOTE | 2016-12-18 17:00 | Progress Note ---
Assessment and Plan Assessment and plan: 51-year-old -Cuban male with past medical history significant for hypertension, medication noncompliance was admitted to the floor after he was presented with chest pain. Initial troponin was negative but the second one was elevated - Stress test was pending this morning and show inferior apical ischemia - Patient is on ACS protocol for non-STEMI - Cardiology consult appreciated - Patient is going to have left heart cath tomorrow - Blood pressure is controlled DVT prophylaxis - On therapeutic heparin Disposition - Continue inpatient care History Interval history: Patient was seen and evaluated, chest pain was subsided. Hospitalist Physical - Physical exam Narrative exam: Not in cardiopulmonary distress. The patient appeared well nourished and normally developed. Vital signs as documented. Head exam is unremarkable. No scleral icterus . Neck is without jugular venous distension, thyromegaly, or carotid bruits. Lungs are clear to auscultation. Cardiac exam reveals regular rate and Rhythm. First and second heart sounds normal. No murmurs, rubs or gallops. Abdominal exam reveals normal bowel sounds, no masses, no organomegaly and no aortic enlargement. Extremities are nonedematous and both femoral and pedal pulses are normal. 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 No focal weakness. - Constitutional Vitals: Temp Pulse Resp BP Pulse Ox 98.9 F 68 18 126/78 98 12/18/16 15:19 12/18/16 16:11 12/18/16 15:17 12/18/16 16:11 12/18/16 15:17 General appearance: Present: no acute distress, well-nourished Results - Labs CBC & Chem 7: 12/18/16 13:59 12/17/16 06:23 Labs: Laboratory Last Values WBC 8.5 K/mm3 (4.5-11.0) 12/17/16 06:23 RBC 4.52 M/mm3 (3.65-5.03) 12/17/16 06:23 Hgb 15.1 gm/dl (11.8-15.2) 12/18/16 13:59 Hct 44.7 % (35.5-45.6) 12/18/16 13:59 MCV 101 fl (84-94) H 12/17/16 06:23 MCH 34 pg (28-32) H 12/17/16 06:23 MCHC 34 % (32-34) 12/17/16 06:23 RDW 13.9 % (13.2-15.2) 12/17/16 06:23 Plt Count 323 K/mm3 (140-440) 12/18/16 13:59 Lymph % (Auto) 18.0 % (13.4-35.0) 12/17/16 06:23 [place] % (Auto) 8.4 % (0.0-7.3) H 12/17/16 06:23 Eos % (Auto) 2.2 % (0.0-4.3) 12/17/16 06:23 Baso % (Auto) 0.7 % (0.0-1.8) 12/17/16 06:23 Lymph # 1.5 K/mm3 (1.2-5.4) 12/17/16 06:23 [place] # 0.7 K/mm3 (0.0-0.8) 12/17/16 06:23 Eos # 0.2 K/mm3 (0.0-0.4) 12/17/16 06:23 Baso # 0.1 K/mm3 (0.0-0.1) 12/17/16 06:23 Seg Neutrophils % 70.7 % (40.0-70.0) H 12/17/16 06:23 Seg Neutrophils # 6.0 K/mm3 (1.8-7.7) 12/17/16 06:23 PT 13.2 Sec. (12.2-14.9) 12/18/16 13:59 INR 1.01 (0.87-1.13) 12/18/16 13:59 APTT 25.6 Sec. (24.2-36.6) 12/18/16 13:59 D-Dimer < 135 ng/mlDDU (0-234) 12/17/16 06:23 Sodium 137 mmol/L (137-145) 12/17/16 06:23 Potassium 3.8 mmol/L (3.6-5.0) 12/17/16 06:23 Chloride 102.9 mmol/L (98-107) 12/17/16 06:23 Carbon Dioxide 20 mmol/L (22-30) L 12/17/16 06:23 Anion Gap 18 mmol/L 12/17/16 06:23 BUN 11 mg/dL (9-20) 12/17/16 06:23 Creatinine 1.0 mg/dL (0.8-1.5) 12/17/16 06:23 Estimated GFR > 60 ml/min 12/17/16 06:23 BUN/Creatinine Ratio 11.00 % 12/17/16 06:23 Glucose 97 mg/dL (75-100) 12/17/16 06:23 Calcium 8.6 mg/dL (8.4-10.2) 12/17/16 06:23 Total Bilirubin 0.40 mg/dL (0.1-1.2) 12/17/16 06:23 Direct Bilirubin < 0.2 mg/dL (0-0.2) 12/17/16 06:23 AST 18 units/L (5-40) 12/17/16 06:23 ALT 17 units/L (7-56) 12/17/16 06:23 Alkaline Phosphatase 49 units/L (35-129) 12/17/16 06:23 Total Creatine Kinase 424 units/L (55-170) H 12/18/16 08:28 CK-MB (CK-2) 18.9 ng/mL (0.0-4.0) H 12/18/16 08:28 CK-MB (CK-2) Rel Index 4.4 (0-4) H 12/18/16 08:28 Troponin T 0.588 ng/mL (0.00-0.029) H* D 12/18/16 08:28 Total Protein 5.8 g/dL (6.3-8.2) L 12/17/16 06:23 Albumin 3.3 g/dL (3.9-5) L 12/17/16 06:23 Albumin/Globulin Ratio 1.3 % 12/17/16 06:23 Triglycerides 107 mg/dL (2-149) 12/18/16 08:28 Cholesterol 198 mg/dL (50-199) 12/18/16 08:28 LDL Cholesterol Direct 108 mg/dL (50-130) 12/18/16 08:28 HDL Cholesterol 69 mg/dL (40-59) H 12/18/16 08:28 Cholesterol/HDL Ratio 2.86 % 12/18/16 08:28
--- NOTE | 2016-12-19 01:46 | Treadmill Report ---
NUCLEAR PERFUSION STUDY READING PHYSICIAN: Pablo Prado MD IMAGING PROTOCOL: Single isotope used. The patient received 10 mCi of Technetium 99m Tetrofosmin for resting image and 28 mCi of Technetium 99m Tetrofosmin for stress imaging. The imaging for the whole procedure was completed 30-90 minutes following the initial injection of Technetium 99m tetrofosmin. The SPECT imaging in the 180 degree arc was performed in the right anterior oblique projection. Computerized reconstruction of the images was performed for analysis. IMAGING RESULTS: Normal cavity size from stress to rest. Normal distribution of radionuclide in the anterior, septal, and apical regions and mid inferior region and inferior septal. There is a moderate reversible defect of moderate intensity, moderate in size, seen on stress compared to rest. Gated SPECT, EF 61% with no wall motion abnormalities. The patient exercised on Rohit protocol for 10 minutes, had no EKG changes suggestive of ischemia and no exaggerated BP. SUMMARY: 1. Negative treadmill EKG. 2. Good exercise capacity 10 minutes Rohit protocol. 3. No exaggerated BP response to exercise. 4. The patient has a moderate inferior ischemia seen on stress compared to rest with Gated SPECT EF of 61%. JOB# [id number] RYAN/BARAK
[2016-12-19 05:18] LABS: Basophils % (Auto) 0.9 % (0.0-1.8); Eosinophils % (Auto) 0.8 % (0.0-4.3); Hematocrit 43.1 % (35.5-45.6); Hemoglobin 14.8 gm/dl (11.8-15.2); Mean Corpuscular HGB Conc 34 % (32-34); Mean Corpuscular Hemoglobin 35 pg (28-32); Mean Corpuscular Volume 101 fl (84-94); Platelet Count 323 K/mm3 (140-440); Red Blood Count 4.28 M/mm3 (3.65-5.03); Red Cell Distribution Width 13.7 % (13.2-15.2)
[2016-12-19 05:32] LABS: Anion Gap 15 mmol/L; Blood Urea Nitrogen 7 mg/dL (9-20); Calcium 8.8 mg/dL (8.4-10.2); Carbon Dioxide 26 mmol/L (22-30); Chloride 101.3 mmol/L (98-107); Glucose 91 mg/dL (75-100); Potassium 4.7 mmol/L (3.6-5.0); Sodium 138 mmol/L (137-145)
[2016-12-19 05:34] LABS: INR 0.97 (0.87-1.13)
--- NOTE | 2016-12-19 12:21 | Progress Note ---
Assessment and Plan nstemi type 2 htn accelerated Hyperlipidemia Smoker Abnormal stress test Plan for coronary angiogram in AM. Cont IV heparin and aspirin beta everton statin medications. D/c heparin gtt tomorrow at 5AM. NPO after MN. Assessment and plan reviewed with pt and pt's family at bedside. The patient has been seen in conjunction with Dr. Prado who agrees with the assessment and plan of care. Subjective Date of service: 12/19/16 Principal diagnosis: NSTEMI Interval history: Pt resting comfortably in bed, states he experienced a bout of chest pain overnight which was alleviated by IV morphine. VSS. Heparin gtt infusing. has been NPO since MN for [facility] today. However, [facility] rescheduled for tomorrow AM d/t scheduling conflicts. Objective Last Vital Signs Temp 98.2 F 12/19/16 07:59 Pulse 63 12/19/16 07:59 Resp 18 12/19/16 07:59 BP 132/90 12/19/16 07:59 Pulse Ox 100 12/19/16 07:59 - Physical Examination General: Appears Well HEENT: Positive: PERRL, Mucus Membranes Moist Neck: Positive: neck supple, trachea midline Cardiac: Positive: Reg Rate and Rhythm, S1/S2 Lungs: Positive: clear to auscultation Neuro: Positive: Grossly Intact Abdomen: Positive: Soft, Active Bowel Sounds. Negative: Tender, Distended Skin: Positive: Clear Incision: Cardiac Cath Site Musculoskeletal: No Pain, Normal Range of Motion Extremities: Present: normal. Absent: edema - Labs and Meds Coagulation 12/18/16 12/19/16 Range/Units 13:59 04:43 PT 13.2 12.8 (12.2-14.9) Sec. INR 1.01 0.97 (0.87-1.13) APTT 25.6 (24.2-36.6) Sec. CBC 12/18/16 12/19/16 Range/Units 13:59 04:43 WBC 8.0 (4.5-11.0) K/mm3 RBC 4.28 (3.65-5.03) M/mm3 Hgb 15.1 14.8 (11.8-15.2) gm/dl Hct 44.7 43.1 (35.5-45.6) % Plt Count 323 323 (140-440) K/mm3 Lymph # 1.2 (1.2-5.4) K/mm3 [place] # 0.7 (0.0-0.8) K/mm3 Eos # 0.1 (0.0-0.4) K/mm3 Baso # 0.1 (0.0-0.1) K/mm3 Comprehensive Metabolic Panel 12/19/16 Range/Units 04:43 Sodium 138 (137-145) mmol/L Potassium 4.7 D (3.6-5.0) mmol/L Chloride 101.3 (98-107) mmol/L Carbon Dioxide 26 (22-30) mmol/L BUN 7 L (9-20) mg/dL Creatinine 1.0 (0.8-1.5) mg/dL Glucose 91 (75-100) mg/dL Calcium 8.8 (8.4-10.2) mg/dL - Imaging and Cardiology Echo: report reviewed (EF 55-60%, impaired relaxation, trace MR) Cardiac cath: pending - Telemetry EKG Rhythm: Sinus Rhythm
[2016-12-19] MEDS: ISORDIL TITRADOSE PO SCH ×2 (13:19→21:56)
[2016-12-19] MEDS: ASPIRIN PO SCH (13:19)
[2016-12-19] MEDS: THERAGRAN Tab PO SCH (13:19)
[2016-12-19] MEDS: PEPCID IV SCH ×2 (13:19→21:56)
[2016-12-19] MEDS: LOPRESSOR PO SCH ×2 (13:19→21:57)
[2016-12-19] MEDS: MORPHINE IV PRN ×2 (13:31→20:13)
[2016-12-19] MEDS: HEPARIN/ 0.45% NACL-25,000 UNIT/500 ML 25,000 UNIT/500 ML BAG IV SCH ×2 (15:32→15:36)
--- NOTE | 2016-12-19 16:04 | Progress Note ---
Assessment and Plan Assessment and plan: 51-year-old -Dominican male with past medical history significant for hypertension, medication noncompliance was admitted to the floor after he was presented with chest pain. Initial troponin was negative but the second one was elevated - Stress test showed inferior apical ischemia - Patient is on ACS protocol for non-STEMI - Cardiology consult appreciated - Patient is going to have left heart cath tomorrow - Blood pressure is controlled DVT prophylaxis - On therapeutic heparin Disposition - Continue inpatient care History Interval history: Patient was seen and evaluated, chest pain was subsided. Hospitalist Physical - Physical exam Narrative exam: Not in cardiopulmonary distress. The patient appeared well nourished and normally developed. Vital signs as documented. Head exam is unremarkable. No scleral icterus . Neck is without jugular venous distension, thyromegaly, or carotid bruits. Lungs are clear to auscultation. Cardiac exam reveals regular rate and Rhythm. First and second heart sounds normal. No murmurs, rubs or gallops. Abdominal exam reveals normal bowel sounds, no masses, no organomegaly and no aortic enlargement. Extremities are nonedematous and both femoral and pedal pulses are normal. 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 No focal weakness. - Constitutional Vitals: Temp Pulse Resp BP Pulse Ox 98.8 F 57 L 18 142/94 100 12/19/16 11:53 12/19/16 11:53 12/19/16 11:53 12/19/16 11:53 12/19/16 11:53 General appearance: Present: no acute distress, well-nourished Results - Labs CBC & Chem 7: 12/19/16 04:43 12/19/16 04:43 Labs: Laboratory Last Values WBC 8.0 K/mm3 (4.5-11.0) 12/19/16 04:43 RBC 4.28 M/mm3 (3.65-5.03) 12/19/16 04:43 Hgb 14.8 gm/dl (11.8-15.2) 12/19/16 04:43 Hct 43.1 % (35.5-45.6) 12/19/16 04:43 MCV 101 fl (84-94) H 12/19/16 04:43 MCH 35 pg (28-32) H 12/19/16 04:43 MCHC 34 % (32-34) 12/19/16 04:43 RDW 13.7 % (13.2-15.2) 12/19/16 04:43 Plt Count 323 K/mm3 (140-440) 12/19/16 04:43 Lymph % (Auto) 15.3 % (13.4-35.0) 12/19/16 04:43 [place] % (Auto) 8.5 % (0.0-7.3) H 12/19/16 04:43 Eos % (Auto) 0.8 % (0.0-4.3) 12/19/16 04:43 Baso % (Auto) 0.9 % (0.0-1.8) 12/19/16 04:43 Lymph # 1.2 K/mm3 (1.2-5.4) 12/19/16 04:43 [place] # 0.7 K/mm3 (0.0-0.8) 12/19/16 04:43 Eos # 0.1 K/mm3 (0.0-0.4) 12/19/16 04:43 Baso # 0.1 K/mm3 (0.0-0.1) 12/19/16 04:43 Seg Neutrophils % 74.5 % (40.0-70.0) H 12/19/16 04:43 Seg Neutrophils # 6.0 K/mm3 (1.8-7.7) 12/19/16 04:43 PT 12.8 Sec. (12.2-14.9) 12/19/16 04:43 INR 0.97 (0.87-1.13) 12/19/16 04:43 APTT 25.6 Sec. (24.2-36.6) 12/18/16 13:59 D-Dimer < 135 ng/mlDDU (0-234) 12/17/16 06:23 Heparin Anti-Xa Level 0.25 U.I./ml (0.3-0.7) L 12/19/16 14:07 Sodium 138 mmol/L (137-145) 12/19/16 04:43 Potassium 4.7 mmol/L (3.6-5.0) D 12/19/16 04:43 Chloride 101.3 mmol/L (98-107) 12/19/16 04:43 Carbon Dioxide 26 mmol/L (22-30) 12/19/16 04:43 Anion Gap 15 mmol/L 12/19/16 04:43 BUN 7 mg/dL (9-20) L 12/19/16 04:43 Creatinine 1.0 mg/dL (0.8-1.5) 12/19/16 04:43 Estimated GFR > 60 ml/min 12/19/16 04:43 BUN/Creatinine Ratio 7.00 % 12/19/16 04:43 Glucose 91 mg/dL (75-100) 12/19/16 04:43 POC Glucose 70 (70-105) 12/19/16 11:53 Calcium 8.8 mg/dL (8.4-10.2) 12/19/16 04:43 Total Bilirubin 0.40 mg/dL (0.1-1.2) 12/17/16 06:23 Direct Bilirubin < 0.2 mg/dL (0-0.2) 12/17/16 06:23 AST 18 units/L (5-40) 12/17/16 06:23 ALT 17 units/L (7-56) 12/17/16 06:23 Alkaline Phosphatase 49 units/L (35-129) 12/17/16 06:23 Total Creatine Kinase 424 units/L (55-170) H 12/18/16 08:28 CK-MB (CK-2) 18.9 ng/mL (0.0-4.0) H 12/18/16 08:28 CK-MB (CK-2) Rel Index 4.4 (0-4) H 12/18/16 08:28 Troponin T 0.588 ng/mL (0.00-0.029) H* D 12/18/16 08:28 Total Protein 5.8 g/dL (6.3-8.2) L 12/17/16 06:23 Albumin 3.3 g/dL (3.9-5) L 12/17/16 06:23 Albumin/Globulin Ratio 1.3 % 12/17/16 06:23 Triglycerides 107 mg/dL (2-149) 12/18/16 08:28 Cholesterol 198 mg/dL (50-199) 12/18/16 08:28 LDL Cholesterol Direct 108 mg/dL (50-130) 12/18/16 08:28 HDL Cholesterol 69 mg/dL (40-59) H 12/18/16 08:28 Cholesterol/HDL Ratio 2.86 % 12/18/16 08:28
[2016-12-20 06:20] LABS: Hematocrit 44.4 % (35.5-45.6); Hemoglobin 15.3 gm/dl (11.8-15.2); Mean Corpuscular HGB Conc 35 % (32-34); Mean Corpuscular Hemoglobin 35 pg (28-32); Mean Corpuscular Volume 101 fl (84-94); Platelet Count 359 K/mm3 (140-440); Red Blood Count 4.41 M/mm3 (3.65-5.03); Red Cell Distribution Width 13.5 % (13.2-15.2); White Blood Count 7.8 K/mm3 (4.5-11.0)
[2016-12-20 06:24] LABS: INR 0.92 (0.87-1.13)
[2016-12-20 06:48] LABS: Anion Gap 17 mmol/L; BUN/Creatinine Ratio 8.88; Blood Urea Nitrogen 8 mg/dL (9-20); Calcium 8.8 mg/dL (8.4-10.2); Carbon Dioxide 25 mmol/L (22-30); Chloride 101.3 mmol/L (98-107); Glucose 89 mg/dL (75-100); Sodium 139 mmol/L (137-145)
[2016-12-20] MEDS ORDERED: CALAN ONE (07:51)
[2016-12-20] MEDS ORDERED: HEPARIN 10,000 UNITS/10 ML ONE (07:51)
[2016-12-20] MEDS ORDERED: NACL 0.9% 500 ML 500 ML ONE (07:57)
[2016-12-20] MEDS: VERSED ONE ×2 (08:06→08:18)
[2016-12-20] MEDS: SUBLIMAZE ONE ×2 (08:06→08:18)
[2016-12-20] MEDS: XYLOCAINE 2% INFILTRATI ONE ×2 (08:07→08:18)
[2016-12-20] MEDS: HEPARIN/NS 5000 UNIT/500ML(CATH LAB) 1,000 ML IR ONE ×2 (08:08→08:21)
[2016-12-20] MEDS: NITROGLYCERIN SYRINGE 3 ML ONE ×2 (08:09→08:21)
[2016-12-20] MEDS ORDERED: NACL 0.9% 0 ML ONE (08:25)
[2016-12-20] MEDS ORDERED: ANGIOMAX IV ONE (08:25)
[2016-12-20] MEDS ORDERED: WATER FOR INJ (PF) 0 ML ONE (08:26)
--- NOTE | 2016-12-20 08:57 | Progress Note ---
Assessment and Plan nstemi type 2 htn accelerated Hyperlipidemia Smoker Abnormal stress test Recommend cardiac cath patent coronaries and normal lv function, treat medically asa, plavix, lopressor and nitrates and lovastatin 40mg and followup in two weeks in the office and post cath care Subjective Date of service: 12/20/16 Principal diagnosis: NSTEMI Interval history: pt chest pain free Objective Vital Signs Temp Pulse Resp BP BP Pulse Ox 12/20/16 05:48 98.5 F 58 L 18 120/78 98 12/20/16 00:31 98.4 F 58 L 18 131/90 98 12/20/16 00:05 50 L 12/19/16 21:57 52 L 139/91 12/19/16 21:56 52 L 139/91 12/19/16 20:41 97.9 F 52 L 18 139/91 98 12/19/16 16:26 98.9 F 66 18 118/80 98 12/19/16 11:53 98.8 F 57 L 18 142/94 100 - Physical Examination General: Appears Well HEENT: Positive: PERRL, Mucus Membranes Moist Neck: Positive: neck supple, trachea midline Cardiac: Positive: Reg Rate and Rhythm Lungs: Positive: clear to auscultation Neuro: Positive: Grossly Intact Abdomen: Positive: Soft, Active Bowel Sounds. Negative: Tender, Distended Skin: Positive: Clear Incision: Cardiac Cath Site Musculoskeletal: No Pain, Normal Range of Motion Extremities: Present: normal. Absent: edema - Labs and Meds Coagulation 12/20/16 Range/Units 05:12 PT 12.8 (12.2-14.9) Sec. INR 0.92 (0.87-1.13) CBC 12/20/16 Range/Units 05:12 WBC 7.8 (4.5-11.0) K/mm3 RBC 4.41 (3.65-5.03) M/mm3 Hgb 15.3 H (11.8-15.2) gm/dl Hct 44.4 (35.5-45.6) % Plt Count 359 (140-440) K/mm3 Comprehensive Metabolic Panel 12/20/16 Range/Units 05:12 Sodium 139 (137-145) mmol/L Potassium 4.0 (3.6-5.0) mmol/L Chloride 101.3 (98-107) mmol/L Carbon Dioxide 25 (22-30) mmol/L BUN 8 L (9-20) mg/dL Creatinine 0.9 (0.8-1.5) mg/dL Glucose 89 (75-100) mg/dL Calcium 8.8 (8.4-10.2) mg/dL - Imaging and Cardiology Echo: report reviewed (EF 55-60%, impaired relaxation, trace MR) Cardiac cath: pending, report reviewed (patent coronaries and normal lv function ) - Telemetry EKG Rhythm: Sinus Bradycardia
[2016-12-20] MEDS ORDERED: BABY ASPIRIN PO SCH (10:00)
--- NOTE | 2016-12-20 10:04 | Discharge Summary ---
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 He states that the pain began this morning around 4:00AM intermittent left side chest pain. The pain was located over his substernal somewhat in the left chest area . Patient described as, pressure pain. The pain lasted for few hours and he states that pain was radiating to left arm and neck. Also the patient did experience some tingling and numbness in his left arm after the pain ceased. No alleviating and aggravating factors. The painful episodes did not increase in intensity or severity during this time. The patient denies chest pain at present time. Patient reported shortness of breath and diaphoresis including feeling clammy. He continued to have several episodes of the pain throughout the night, he decided to come to the emergency department. He denies vomiting during these episodes of pain.No history of previous stress test or cardiac cath. Patient has been noncompliant with his blood pressure medication 6 months. Patient was admitted to the floor and his first troponin was normal but the repeated was elevated and patient was started to be managed for NSTEMI and stress test showed inferior ischemia on exercise and left heart cath was done, coronaries were patent and patient discharged with medical management. Patient has an appointment to see Dr Prado in the clinic. Patient was hemodynamically stable at the time of discharge and BP was well controlled. Patient was gicen 1 month supply of medication script. Disposition: DC-01 TO HOME OR SELFCARE Time spent for discharge: 31minutes - Discharge Diagnoses (1) NSTEMI (non-ST elevated myocardial infarction) Status: Acute (2) Chest pain Status: Acute Qualifiers: Chest pain type: C Ischemic chest pain type: I (3) HTN (hypertension) Status: Acute Qualifiers: Hypertension type: H (4) Noncompliance with medication regimen Status: Acute (5) Smoker Status: Acute Core Measure Documentation - Palliative Care Palliative Care/ Comfort Measures: Not Applicable - Core Measures Any of the following diagnoses?: acute HI - Acute HI Discharge Requirements Aspirin at discharge: Yes KEATON/ARB for LVSD if EF <40%: Not Applicable Beta everton at discharge: Yes Statin for LDL = or >100 mg/dl on DC: Yes Exam - Physical Exam Narrative exam: Not in cardiopulmonary distress. The patient appeared well nourished and normally developed. Vital signs as documented. Head exam is unremarkable. No scleral icterus . Neck is without jugular venous distension, thyromegaly, or carotid bruits. Lungs are clear to auscultation. Cardiac exam reveals regular rate and Rhythm. First and second heart sounds normal. No murmurs, rubs or gallops. Abdominal exam reveals normal bowel sounds, no masses, no organomegaly and no aortic enlargement. Extremities are nonedematous and both femoral and pedal pulses are normal. 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 No focal weakness. - Constitutional Vitals: Temp Pulse Resp BP Pulse Ox 98.1 F 52 L 16 131/104 98 12/20/16 09:09 12/20/16 09:09 12/20/16 09:09 12/20/16 09:09 12/20/16 05:48 Plan Activity: no restrictions Weight Bearing Status: Full Weight Bearing Diet: low cholesterol, low salt Follow up with: PRIMARY CAREMD [Primary Care Provider] - 7 Days JUAN PRADO MD [Staff Physician] - 7 Days Forms: CardCath PCI D/C Instructions Prescriptions: Aspirin [Aspirin BABY CHEW TAB] 81 mg PO QDAY #30 tab.chew Clopidogrel [Plavix] 75 mg PO QDAY #30 tablet HYDROcodone/APAP 5-325 [[place] 5/325] 1 each PO Q6HR PRN #12 tablet PRN Reason: Pain Isosorbide Mononitrate 20 mg PO BID #60 tablet Lovastatin [Altoprev] 40 mg PO QPM #30 tab.er.24h Metoprolol [Lopressor TAB] 12.5 mg PO BID #30 tablet Ranitidine HCl [Zantac 150 MG TAB] 150 mg PO DAILY #30 tablet
--- NOTE | 2016-12-20 10:23 | Cardiac Catherization Report ---
LEFT HEART CATHETERIZATION CLINICAL INFORMATION: A 51-year-old -Beninese gentleman with hypertension and smoker presents with chest pain with non-STEMI with [id number] ischemia in the inferior apical regions with normal LV function and is here for left heart catheterization. Left heart catheterization performed via the right radial artery, sterile technique, local anesthesia, 6-Burmese radial sheath inserted. Left system engaged with a JL3.5 catheter. FINDINGS: Left main large and patent, bifurcates into large LAD, is patent proximally and distally at the apex becomes small caliber. Diagonal 1 is a medium caliber vessel, it is patent. Circumflex and AV groove is a large caliber vessel with moderate tortuosity. OM1 and OM2 are [id number] caliber vessel that is patent. RCA engaged with JR4 catheter, is a large dominant vessel with moderate tortuosity, patent from proximally and distally. PDA and PLV are medium caliber vessels, moderate to severe tortuosity patent. LV gram done in [place] and TORO view shows normal LV function and EF 55-60%. LVEDP of 50 mmHg, LV is 124/15, aortic is 122/78. No gradient across the aortic valve on pullback. 5-Burmese catheters were taken over a guidewire. 6-Burmese radial sheath was discontinued. Radial dressing applied. No hematoma. No bleeding. SUMMARY: 1. Patent coronary, left main patent, LAD patent, circ patent, large caliber with moderate tortuosity. OM1 and OM2 patent. RCA large dominate. Moderate tortuosity patent. PDA patent. 2. Normal LV function. 3. Treat medically. JOB# [id number] RYAN/BARAK
[2016-12-20] MEDS ORDERED: PEPCID PO SCH (12:00)
--- NOTE | 2016-12-20 12:36 | Event Note ---
Date: 12/20/16 Follow up in our [place] office with Dr. Prado on 12/30/2016 @ 10:15AM. Valdez MUELLER NP / DR. PRADO
[2016-12-20 12:41] VITALS: BP 124/86
[2016-12-20] MEDS ORDERED: PLAVIX PO SCH (13:00)
[2016-12-20] MEDS: LOPRESSOR PO SCH (13:22)
[2016-12-20] MEDS: THERAGRAN Tab PO SCH (13:22)
[2016-12-20] MEDS: ISORDIL TITRADOSE PO SCH (13:23)
[2016-12-20] MEDS: MORPHINE IV PRN (13:23)
[2016-12-20] MEDS: PEPCID IV SCH (14:04)
[2016-12-20] MEDS ORDERED: ZOCOR PO SCH (22:00)
== END 2016-12-20 17:21 | disposition home or self-care (01) | DRG 282 ==
LOC: ED 05:00 → 4A 10:51
PROVIDERS: ADMIT Internal Medicine; ATTEND Internal Medicine
PROC: 4A023N7 Measurement of Cardiac Sampling and Pressure, Left Heart, Percutaneous Approach (ICD-10-PCS; principal; 2016-12-20)
PROC: B2111ZZ Fluoroscopy of Multiple Coronary Arteries using Low Osmolar Contrast (ICD-10-PCS; 2016-12-20)
PROC: 3E0234Z Introduction of Serum, Toxoid and Vaccine into Muscle, Percutaneous Approach (ICD-10-PCS; 2016-12-20)
DX: I21.4 Non-ST elevation (NSTEMI) myocardial infarction (principal); R07.9 Chest pain, unspecified; I10 Essential (primary) hypertension; F17.200 Nicotine dependence, unspecified, uncomplicated; K21.9 Gastro-esophageal reflux disease without esophagitis; F12.90 Cannabis use, unspecified, uncomplicated; E78.5 Hyperlipidemia, unspecified; Z91.14 Patient's other noncompliance with medication regimen; Z79.899 Other long term (current) drug therapy; Z82.49 Family history of ischemic heart disease and other diseases of the circulatory system; Z87.11 Personal history of peptic ulcer disease; Z23 Encounter for immunization
CPT/HCPCS: 36415; 71010; 78452; 80048; 80061; 80074; 82550; 82553; 82962; 84484; 85014; 85018; 85025; 85027; 85049; 85379; 85520; 85610; 85730; 90686; 93005; 93010; 93017; 93306; 93458; 96374; 96375; 96376; 99406; A9270-GY; A9502; C1894; J0360; J0583; J1644; J2250; J2270; J2405; J3010; J7040; Q9967

== ENCOUNTER 2017-10-16 17:16 | Inpatient (IN) | payer OTHER ==
[2017-10-16] MEDS ORDERED: NACL 0.9% 1000 ML 1,000 ML IV ONE ×2 (18:02→19:28)
--- NOTE | 2017-10-16 18:03 | Emergency Department Report ---
ED General Adult HPI - General Chief complaint: Syncope Stated complaint: SYNCOPY Time Seen by Provider: 10/16/17 17:48 Source: patient, EMS (ems notes not available at time of chart dictation), RN notes reviewed, old records reviewed Mode of arrival: Stretcher Limitations: Physical Limitation - History of Present Illness Initial comments: This is a 52-year-old male, known to this provider previously, past medical history of hypertension, peptic ulcer disease, tobacco use, possible STEMI, admitted to this hospital last year, December 2016 for the aforementioned, had an abnormal nuclear stress test but had a cardiac catheterization which demonstrated essentially normal anatomy; please reference cardiac catheterization report from December [address] Prado He also had an ejection fraction of 50-55%. He presents to the ER with a complaint of near syncope multiple times today. He reports feeling weak, feeling like his vision is going out on him, and feeling like he will almost pass out. This is a painless sensation. He denies severe headache, thunderclap headache, neck pain, chest pain, abdominal pain, hematemesis, bright red blood per rectum and also denies DVT, pulmonary embolus risk factors. He also endorses sweating and diaphoresis. These accompany his episodes, however he is symptom-free at this time. His symptoms are painless, do not radiate anywhere, worsen when he gets up, and decreases with rest. -: Sudden Consistency: intermittent Improves with: rest Worsens with: movement Associated Symptoms: diaphoresis, malaise, syncope, weakness. denies: confusion , chest pain, cough, fever/chills, headaches, loss of appetite, nausea/vomiting , rash, shortness of breath - Related Data Home Medications Medication Instructions Recorded Confirmed Last Taken Multivit-Minerals/FA/Lycopene [One 1 each PO DAILY 12/17/16 12/17/16 12/16/16 Daily [place] Tablet] Previous Rx's Medication Instructions Recorded Last Taken Type Aspirin [Aspirin BABY CHEW TAB] 81 mg PO QDAY #30 tab.chew 12/20/16 Unknown Rx Clopidogrel [Plavix] 75 mg PO QDAY #30 tablet 12/20/16 Unknown Rx HYDROcodone/APAP 5-325 [[place] 1 each PO Q6HR PRN #12 tablet 12/20/16 Unknown Rx 5/325] Isosorbide Mononitrate 20 mg PO BID #60 tablet 12/20/16 Unknown Rx Lovastatin [Altoprev] 40 mg PO QPM #30 tab.er.24h 12/20/16 Unknown Rx Metoprolol [Lopressor TAB] 12.5 mg PO BID #30 tablet 12/20/16 Unknown Rx Ranitidine HCl [Zantac 150 MG TAB] 150 mg PO DAILY #30 tablet 12/20/16 Unknown Rx Allergies Allergy/AdvReac Type Severity Reaction Status Date / Time No Known Allergies Allergy Verified 08/30/15 17:32 ED Review of Systems ROS: Stated complaint: SYNCOPY Other details as noted in HPI Comment: All other systems reviewed and negative ED Past Medical Hx - Past Medical History Hx Hypertension: Yes (BORDERLINE-NO MEDS) Hx Heart Attack/AMI: Yes Hx Congestive Heart Failure: No Hx Diabetes: No Hx Asthma: No Hx COPD: No Additional medical history: ULCERS - Surgical History Additional Surgical History: carpal tunnel - Social History Smoking Status: Current Every Day Smoker Substance Use Type: Alcohol - Medications Home Medications: Home Medications Medication Instructions Recorded Confirmed Last Taken Type Multivit-Minerals/FA/Lycopene [One 1 each PO DAILY 12/17/16 12/17/16 12/16/16 History Daily [employer] [place] Tablet] Aspirin [Aspirin BABY CHEW TAB] 81 mg PO QDAY #30 tab.chew 12/20/16 Unknown Rx Clopidogrel [Plavix] 75 mg PO QDAY #30 tablet 12/20/16 Unknown Rx HYDROcodone/APAP 5-325 [[place] 1 each PO Q6HR PRN #12 tablet 12/20/16 Unknown Rx 5/325] Isosorbide Mononitrate 20 mg PO BID #60 tablet 12/20/16 Unknown Rx Lovastatin [Altoprev] 40 mg PO QPM #30 tab.er.24h 12/20/16 Unknown Rx Metoprolol [Lopressor TAB] 12.5 mg PO BID #30 tablet 12/20/16 Unknown Rx Ranitidine HCl [Zantac 150 MG TAB] 150 mg PO DAILY #30 tablet 12/20/16 Unknown Rx ED Physical Exam - General Limitations: No Limitations General appearance: alert, in no apparent distress - Head Head exam: Present: atraumatic, normocephalic - Eye Eye exam: Present: normal appearance, EOMI. Absent: nystagmus - ENT ENT exam: Present: normal exam, normal orophraynx, mucous membranes moist, normal external ear exam - Neck Neck exam: Present: normal inspection, full ROM - Respiratory Respiratory exam: Present: normal lung sounds bilaterally. Absent: respiratory distress - Cardiovascular Cardiovascular Exam: Present: normal rhythm, bradycardia, normal heart sounds. Absent: systolic murmur, diastolic murmur, rubs, gallop - GI/Abdominal GI/Abdominal exam: Present: soft, normal bowel sounds. Absent: distended, tenderness, guarding, rebound, rigid, pulsatile mass - Rectal Rectal exam: Present: deferred - Extremities Exam Extremities exam: Present: normal inspection, full ROM, normal capillary refill , other (2+ pulses noted in the bilateral upper, lower extremities. Compartments soft. No long bony tenderness. The pelvis is stable.). Absent: pedal edema, joint swelling, calf tenderness - Back Exam Back exam: Present: normal inspection, full ROM. Absent: paraspinal tenderness , vertebral tenderness - Neurological Exam Neurological exam: Present: alert, oriented X3, CN II-XII intact, other ( Extraocular movements intact. Tongue midline. No facial droop. Facial sensation intact to light touch in the V1, V2, V3 distribution bilaterally. 5 and 5 strength in 4 extremities.. Sensation is intact to light touch in 4 extremities.). Absent: motor sensory deficit - Psychiatric Psychiatric exam: Present: normal affect, normal mood - Skin Skin exam: Present: warm, dry, intact, normal color. Absent: rash ED Course Vital Signs 10/16/17 10/16/17 10/16/17 17:14 17:15 17:30 Temperature Pulse Rate 56 L 64 64 Respiratory 17 13 10 L Rate Blood Pressure 87/60 O2 Sat by Pulse 98 99 98 Oximetry 10/16/17 10/16/17 10/16/17 17:45 18:00 18:15 Temperature 97.9 F Pulse Rate 62 62 63 Respiratory 13 29 H 10 L Rate Blood Pressure 87/60 94/56 94/56 O2 Sat by Pulse 99 98 98 Oximetry 10/16/17 10/16/17 10/16/17 18:30 18:45 19:00 Temperature Pulse Rate Respiratory 22 18 23 Rate Blood Pressure 92/54 92/54 97/65 O2 Sat by Pulse 98 99 100 Oximetry 10/16/17 19:15 Temperature Pulse Rate Respiratory 15 Rate Blood Pressure 97/65 O2 Sat by Pulse 99 Oximetry - Reevaluation(s) Reevaluation #1: 10/16/17 19:23 Differential diagnosis, including but not limited to: Orthostasis, vagal event, structural cardiac disease, vasomotor nephropathy, prerenal insufficiency, pulmonary embolus Assessment and plan: 52-year-old male with multiple episodes of near syncope today. He is clinically sober at this time with a Rox Coma Scale of 15, and an NIH score of 0. He denies DVT, pulmonary embolus risk factors and is low risk by well's criteria. Had a cardiac catheterization within the past 12 months and an echocardiogram within the past 12 months. Objectively speaking his blood pressure was quite low upon arrival, and his laboratory studies indicated renal insufficiency without obvious etiology. His orthostatic vital signs were nondiagnostic. IV fluids were ordered, and an EKG today demonstrated nonspecific changes which appeared to a prior EKG. A d-dimer was ordered and came back elevated, nuclear medicine study is pending , x-ray of the chest is pending, and a noncontrast CT scan of the brain is pending. Based on the history and physical, history is not consistent with subarachnoid hemorrhage. Etiology is most likely vasomotor nephropathy, and dehydration. Case was discussed with covering consulting bead forming machine operator, Dr. Homer Betts, who recommended evaluation for pulmonary embolus and admission for observation, indicated his group would see the patient in the morning as a consult. Reevaluation #2: 10/16/17 20:01 X-rays chest is negative. Noncontrast CT scan of the brain is negative. Nuclear medicine study is pending. Dr Stubbs accepts the patient to the medical service ED Medical Decision Making - Lab Data Result diagrams: 10/16/17 17:29 10/16/17 17:29 Vital Signs 10/16/17 10/16/17 10/16/17 17:14 17:15 17:30 Temperature Pulse Rate 56 L 64 64 Respiratory 17 13 10 L Rate Blood Pressure 87/60 O2 Sat by Pulse 98 99 98 Oximetry 10/16/17 17:45 Temperature 97.9 F Pulse Rate 62 Respiratory 16 Rate Blood Pressure 90/60 O2 Sat by Pulse 97 Oximetry Lab Results 10/16/17 10/16/17 10/16/17 Range/Units 17:29 17:29 17:29 WBC 9.8 (4.5-11.0) K/mm3 RBC 4.10 (3.65-5.03) M/mm3 Hgb 14.5 (11.8-15.2) gm/dl Hct 42.6 (35.5-45.6) % MCV 104 H (84-94) fl MCH 35 H (28-32) pg MCHC 34 (32-34) % RDW 13.5 (13.2-15.2) % Plt Count 258 (140-440) K/mm3 Lymph % (Auto) 21.6 (13.4-35.0) % [place] % (Auto) 7.8 H (0.0-7.3) % Eos % (Auto) 0.6 (0.0-4.3) % Baso % (Auto) 0.4 (0.0-1.8) % Lymph # 2.1 (1.2-5.4) K/mm3 [place] # 0.8 (0.0-0.8) K/mm3 Eos # 0.1 (0.0-0.4) K/mm3 Baso # 0.0 (0.0-0.1) K/mm3 Seg Neutrophils % 69.6 (40.0-70.0) % Seg Neutrophils # 6.8 (1.8-7.7) K/mm3 PT 13.9 (12.2-14.9) Sec. INR 1.02 (0.87-1.13) D-Dimer (0-234) ng/mlDDU Sodium 140 (137-145) mmol/L Potassium 4.1 (3.6-5.0) mmol/L Chloride 104.2 (98-107) mmol/L Carbon Dioxide 18 L (22-30) mmol/L Anion Gap 22 mmol/L BUN 14 (9-20) mg/dL Creatinine 1.8 H (0.8-1.5) mg/dL Estimated GFR 48 ml/min BUN/Creatinine Ratio 8 % Glucose 85 (75-100) mg/dL Calcium 8.9 (8.4-10.2) mg/dL Magnesium (1.7-2.3) mg/dL Total Bilirubin 0.60 (0.1-1.2) mg/dL AST 22 (5-40) units/L ALT 35 (7-56) units/L Alkaline Phosphatase 40 (35-129) units/L Total Creatine Kinase (55-170) units/L Troponin T (0.00-0.029) ng/mL Total Protein 5.2 L (6.3-8.2) g/dL Albumin 3.6 L (3.9-5) g/dL Albumin/Globulin Ratio 2.3 % 10/16/17 10/16/17 Range/Units 17:29 18:35 WBC (4.5-11.0) K/mm3 RBC (3.65-5.03) M/mm3 Hgb (11.8-15.2) gm/dl Hct (35.5-45.6) % MCV (84-94) fl MCH (28-32) pg MCHC (32-34) % RDW (13.2-15.2) % Plt Count (140-440) K/mm3 Lymph % (Auto) (13.4-35.0) % [place] % (Auto) (0.0-7.3) % Eos % (Auto) (0.0-4.3) % Baso % (Auto) (0.0-1.8) % Lymph # (1.2-5.4) K/mm3 [place] # (0.0-0.8) K/mm3 Eos # (0.0-0.4) K/mm3 Baso # (0.0-0.1) K/mm3 Seg Neutrophils % (40.0-70.0) % Seg Neutrophils # (1.8-7.7) K/mm3 PT (12.2-14.9) Sec. INR (0.87-1.13) D-Dimer 359.4 H (0-234) ng/mlDDU Sodium (137-145) mmol/L Potassium (3.6-5.0) mmol/L Chloride (98-107) mmol/L Carbon Dioxide (22-30) mmol/L Anion Gap mmol/L BUN (9-20) mg/dL Creatinine (0.8-1.5) mg/dL Estimated GFR ml/min BUN/Creatinine Ratio % Glucose (75-100) mg/dL Calcium (8.4-10.2) mg/dL Magnesium 1.90 (1.7-2.3) mg/dL Total Bilirubin (0.1-1.2) mg/dL AST (5-40) units/L ALT (7-56) units/L Alkaline Phosphatase (35-129) units/L Total Creatine Kinase 213 H (55-170) units/L Troponin T < 0.010 (0.00-0.029) ng/mL Total Protein (6.3-8.2) g/dL Albumin (3.9-5) g/dL Albumin/Globulin Ratio % - EKG Data -: EKG Interpreted by Me - EKG Data 10/16/17 19:26 EKG shows normal sinus, 62 bpm, left axis deviation, left anterior fascicular block, motion artifact in the anteroseptal leads, biphasic T-wave in V3, V4, V5 , abnormal EKG, not a STEMI, nonspecific changes when compared to prior from 03/2017. - Radiology Data Radiology results: pending Critical care attestation.: If time is entered above; I have spent that time in minutes in the direct care of this critically ill patient, excluding procedure time. ED Disposition Clinical Impression: MATHIEU (acute kidney injury) Syncope Qualifiers: Syncope type: unspecified Qualified Code(s): R55 - Syncope and collapse Disposition: OP ADMIT IP TO THIS HOSP Is pt being admited?: Yes Condition: Good Instructions: Syncope (ED) Referrals: PRIMARY CARE, [Primary Care Provider] - 3-5 Days
[2017-10-16 18:48] LABS: INR 1.02 (0.87-1.13)
[2017-10-16 18:49] LABS: Albumin 3.6 g/dL (3.9-5); Calcium 8.9 mg/dL (8.4-10.2)
[2017-10-16 18:52] LABS: Hematocrit 42.6 % (35.5-45.6); Hemoglobin 14.5 gm/dl (11.8-15.2); Mean Corpuscular HGB Conc 34 % (32-34); Mean Corpuscular Hemoglobin 35 pg (28-32); Mean Corpuscular Volume 104 fl (84-94); Platelet Count 258 K/mm3 (140-440); Red Cell Distribution Width 13.5 % (13.2-15.2)
[2017-10-16 18:57] LABS: Basophils % (Auto) 0.4 % (0.0-1.8); Eosinophils % (Auto) 0.6 % (0.0-4.3); Lymphocytes % (Auto) 21.6 % (13.4-35.0); Monocytes % (Auto) 7.8 % (0.0-7.3)
[2017-10-16 18:58] LABS: Lymphocytes # (Auto) 2.1 K/mm3 (1.2-5.4)
[2017-10-16 18:59] LABS: Eosinophils # (Auto) 0.1 K/mm3 (0.0-0.4); Monocytes # (Auto) 0.8 K/mm3 (0.0-0.8)
--- NOTE | 2017-10-16 19:45 | Cat Scan Report ---
FINAL REPORT EXAM: CT HEAD/BRAIN WO CON HISTORY: syncoope TECHNIQUE: CT head without contrast PRIORS: None. FINDINGS: No acute intra-axial or extra-axial hemorrhage is identified. There is no evidence of midline shift or mass effect. The ventricles and sulci are within normal limits. Goncalves-white matter differentiation is intact. No acute parenchymal abnormalities seen. Bony calvarium is grossly intact. Visualized portions of the mastoids and paranasal sinuses are unremarkable. IMPRESSION: Negative CT head
--- NOTE | 2017-10-16 19:53 | XRay Report ---
FINAL REPORT EXAM: XR CHEST 1V AP HISTORY: syncope hx of nstemi TECHNIQUE: upright single view chest PRIORS: None. FINDINGS: Cardiac and mediastinal contours are unremarkable. No focal pulmonary infiltrate is identified. No pleural fluid collection seen. Pulmonary vasculature is unremarkable. IMPRESSION: Negative single-view chest
--- NOTE | 2017-10-16 20:05 | History and Physical Report ---
History of Present Illness Chief complaint: I keep passing out, and my vision gets real blurry History of present illness: 52 YO Male with HTN, [place], PUD, Nicotine Dependence presents to ED for evaluation. Pt states that he has experienced multiple episodes of weakness, and also passed out today. Pt states that he has experienced several episodes over the past 2 weeks. Pt states that he has experienced blurred vision, sweating prior to passing out. Pt denies fever, chills, CP, Palpitations, Trauma , BRBPR, Unintentional weight loss, night sweats, prolonged travel/immobility, uilateral leg swelling, calf pain, headache, neck pain, or recent ill contacts. Pt seen and evaluated in ED and found to have symptoms consistent with acute CVA as well as ARF. Pt admitted to telemetry, and initiated on CVA protocol. Past History Past Medical History: hypertension, other (PUD) Past Surgical History: Other (carpal tunnel) Social history: , smoking Family history: hypertension Medications and Allergies Allergies Allergy/AdvReac Type Severity Reaction Status Date / Time No Known Allergies Allergy Verified 08/30/15 17:32 Home Medications Medication Instructions Recorded Confirmed Last Taken Type Multivit-Minerals/FA/Lycopene [One 1 each PO DAILY 12/17/16 12/17/16 12/16/16 History Daily [employer] Tablet] Aspirin [Aspirin BABY CHEW TAB] 81 mg PO QDAY #30 tab.chew 12/20/16 Unknown Rx Clopidogrel [Plavix] 75 mg PO QDAY #30 tablet 12/20/16 Unknown Rx HYDROcodone/APAP 5-325 [[place] 1 each PO Q6HR PRN #12 tablet 12/20/16 Unknown Rx 5/325] Isosorbide Mononitrate 20 mg PO BID #60 tablet 12/20/16 Unknown Rx Lovastatin [Altoprev] 40 mg PO QPM #30 tab.er.24h 12/20/16 Unknown Rx Metoprolol [Lopressor TAB] 12.5 mg PO BID #30 tablet 12/20/16 Unknown Rx Ranitidine HCl [Zantac 150 MG TAB] 150 mg PO DAILY #30 tablet 12/20/16 Unknown Rx Active Meds: Active Medications Sodium Chloride (Nacl 0.9% 1000 Ml) 1,000 mls @ 999 mls/hr IV BOLUS ONE Stop: 10/16/17 20:28 Review of Systems Constitutional: weakness, no weight loss, no weight gain, no fever, no chills Eyes: bilateral: blurred vision Ears, nose, mouth and throat: no ear pain, no ear discharge, no tinnitis, no decreased hearing, no nose pain, no nasal congestion Cardiovascular: no chest pain, no orthopnea, no palpitations, no rapid/ irregular heart beat Respiratory: no cough, no cough with sputum, no excessive sputum, no hemoptysis Gastrointestinal: no abdominal pain, no nausea, no vomiting, no diarrhea, no constipation, no change in bowel habits Genitourinary Male: no dysuria, no hematuria, no flank pain, no discharge, no urinary frequency, no urinary hesitancy Rectal: no pain, no incontinence, no bleeding Musculoskeletal: no neck stiffness, no neck pain, no shooting arm pain, no arm numbness/tingling, no low back pain, no shooting leg pain, no leg numbness/ tingling Integumentary: no rash, no pruritis, no redness, no sores, no wounds, no jaundice Neurological: weakness, syncope, loss of vision, no head injury, no parathesias , no numbness, no ataxia, no migraines, no convulsions, no aphasia Psychiatric: no anxiety, no memory loss, no change in sleep habits, no sleep disturbances, no insomnia, no hypersomnia, no change in appetite Endocrine: no cold intolerance, no heat intolerance, no polyphagia, no excessive thirst, no polydipsia, no polyuria, no nocturia Hematologic/Lymphatic: no easy bruising, no easy bleeding, no lymphadenopathy Allergic/Immunologic: no urticaria, no allergic rhinitis, no wheezing, no persistent infections, no anaphylaxis, no angioedema Exam - Constitutional Vitals: Temp Pulse Resp BP Pulse Ox 97.9 F 63 15 97/65 99 10/16/17 17:45 10/16/17 18:15 10/16/17 19:15 10/16/17 19:15 10/16/17 19:15 General appearance: Present: no acute distress, well-nourished - EENT Eyes: Present: PERRL ENT: hearing intact, clear oral mucosa - Neck Neck: Present: supple, normal ROM - Respiratory Respiratory effort: normal Respiratory: bilateral: CTA - Cardiovascular Heart Sounds: Present: S1 & S2. Absent: rub, click - Extremities Extremities: pulses symmetrical, No edema Peripheral Pulses: within normal limits - Abdominal General gastrointestinal: Present: soft, non-tender, non-distended, normal bowel sounds Male genitourinary: Present: normal - Integumentary Integumentary: Present: clear, warm, dry - Musculoskeletal Musculoskeletal: gait normal, strength equal bilaterally - Psychiatric Psychiatric: appropriate mood/affect, intact judgment & insight - Neurologic Neurologic: CNII-XII intact, moves all extremities Results - Labs CBC & Chem 7: 10/16/17 17:29 10/16/17 17:29 Labs: Abnormal lab results 10/16/17 10/16/17 10/16/17 Range/Units 17:29 17:29 17:29 MCV 104 H (84-94) fl MCH 35 H (28-32) pg [place] % (Auto) 7.8 H (0.0-7.3) % D-Dimer (0-234) ng/mlDDU Carbon Dioxide 18 L (22-30) mmol/L Creatinine 1.8 H (0.8-1.5) mg/dL Total Creatine Kinase 213 H (55-170) units/L Total Protein 5.2 L (6.3-8.2) g/dL Albumin 3.6 L (3.9-5) g/dL 10/16/17 Range/Units 18:35 MCV (84-94) fl MCH (28-32) pg [place] % (Auto) (0.0-7.3) % D-Dimer 359.4 H (0-234) ng/mlDDU Carbon Dioxide (22-30) mmol/L Creatinine (0.8-1.5) mg/dL Total Creatine Kinase (55-170) units/L Total Protein (6.3-8.2) g/dL Albumin (3.9-5) g/dL Assessment and Plan - Patient Problems (1) CVA (cerebral vascular accident) Current Visit: Yes Status: Acute Qualifiers: Laterality of affected vessel: unspecified Plan to address problem: CVA protocol, CT Head, MRI brain, MRA brain, Echo, EEG, CArotid doppler, antiplatelet therapy, lipid panel, (2) ARF (acute renal failure) with tubular necrosis Current Visit: Yes Status: Acute Plan to address problem: IVF resuscitation therapy, monitor uop q shift, (3) Acidosis Current Visit: Yes Status: Acute Plan to address problem: IVF resuscitation, suspect RTA, will continue to monitor, repeat bmp (4) Nicotine dependence unspecified, with withdrawal Current Visit: Yes Status: Acute Qualifiers: Nicotine product type: cigarettes Qualified Code(s): F17.213 - Nicotine dependence, cigarettes, with withdrawal Plan to address problem: Smoking cessation counseling, supportive care. (5) DVT prophylaxis Current Visit: Yes Status: Acute Plan to address problem: SCD to BLE while in bed.
[2017-10-16] MEDS ORDERED: REGLAN PO PRN (20:10)
[2017-10-16] MEDS ORDERED: MILK OF MAGNESIA PO PRN (20:10)
[2017-10-16] MEDS ORDERED: PHENERGAN PR PRN (20:10)
[2017-10-16] MEDS ORDERED: SODIUM CHLORIDE FLUSH SYRINGE 10 ML IV PRN (20:10)
[2017-10-16] MEDS ORDERED: DULCOLAX PR PRN (20:10)
[2017-10-16] MEDS ORDERED: ZOFRAN IV PRN (20:10)
--- NOTE | 2017-10-16 21:42 | Nuclear Medicine Report ---
FINAL REPORT EXAM: NM LUNG SCAN PERF/VENT HISTORY: syncope TECHNIQUE: Ventilation perfusion study Ventilation study performed with 17.7 millicuries seen on 05/06 3 gas Perfusion study performed following intravenous administration 4.6 millicuries technetium 99 M MAA PRIORS: Correlated with chest radiograph of the same day FINDINGS: There is homogeneous distribution of the radiotracer on perfusion exam. No perfusion defects identified On ventilation study there is homogeneous distribution with normal washout no focal areas of air trapping identified. IMPRESSION: Normal. No scintigraphic evidence for acute pulmonary embolus
[2017-10-16] MEDS ORDERED: NACL 0.9% 1000 ML 1,000 ML ONE (21:54)
[2017-10-16] MEDS ORDERED: TYLENOL ONE (21:54)
[2017-10-16] MEDS: TYLENOL PO PRN (22:04)
[2017-10-16] MEDS: PEPCID PO SCH (22:06)
[2017-10-16] MEDS: PRAVACHOL PO SCH (22:06)
[2017-10-17 06:19] LABS: Chol/HDL Ratio 2.12 %
[2017-10-17] MEDS: TYLENOL PO PRN (09:03)
[2017-10-17] MEDS: ASPIRIN PO SCH (09:06)
[2017-10-17] MEDS: PEPCID PO SCH ×2 (09:06→21:39)
--- NOTE | 2017-10-17 10:13 | Progress Note ---
Assessment and Plan - CVA (cerebral vascular accident) CVA protocol, CT Head was normal, MRI brain, MRA brain within normal Echo normal ejection fraction of 55-60% with no intracardiac shunt, Continue with aspirin, atorvastatin, PT OT evaluation and treatment - ARF (acute renal failure) with tubular necrosis IVF resuscitation therapy, monitor uop q shift, Renal Function improvement - Acidosis IVF resuscitation, suspect RTA, will continue to monitor, repeat bmp - Nicotine dependence unspecified, with withdrawal Smoking cessation counseling, supportive care. - DVT prophylaxis SCD to BLE while in bed. Subjective Date of service: 10/17/17 Principal diagnosis: syncope, TIA Interval history: Patient seen and examined. No overnight events reported. No chest pain shortness of breath. Objective - Exam Narrative Exam: Constitutional: Well-nourished well-developed. In no distress Head: Normocephalic atraumatic Eyes: Pupils are equal round and reactive to light Nose: No enlarged turbinates, no septal deviation. Mouth: Moist mucous membranes. Neck: Supple no thyromegaly. No bruit. No JVD Heart: Regular rate and rhythm, S1-S2 abnormal. No rubs murmurs or gallop Lungs: Clear to auscultation bilaterally no rales or rhonchi Abdomen: Soft, nontender. Bowel sound are present. Extremities: No edema no cyanosis and no clubbing. Neuro: Alert oriented Oriented x3. No focal sensory or motor deficit. Skin: No rashes no hyperemic spots Psychiatry: Euthymic. Calm. - Constitutional Vitals: Vital Signs - 12hr 10/16/17 10/16/17 10/17/17 22:58 23:04 00:20 Temperature 98.1 F Pulse Rate 62 Pulse Rate [ Left Radial] Respiratory 18 18 Rate Respiratory 18 Rate [Right Back] Blood Pressure 114/76 O2 Sat by Pulse 99 Oximetry 10/17/17 10/17/17 10/17/17 02:54 04:28 04:36 Temperature 97.6 F Pulse Rate 54 L 54 L Pulse Rate [ 85 Left Radial] Respiratory 18 18 Rate Respiratory Rate [Right Back] Blood Pressure 130/86 O2 Sat by Pulse 100 Oximetry 10/17/17 10/17/17 07:49 09:03 Temperature 98.3 F Pulse Rate 59 L Pulse Rate [ Left Radial] Respiratory 14 20 Rate Respiratory Rate [Right Back] Blood Pressure 135/89 O2 Sat by Pulse 99 Oximetry - Labs CBC & Chem 7: 10/16/17 17:29 10/16/17 17:29 Labs: Abnormal lab results 10/16/17 10/16/17 10/16/17 Range/Units 17:29 17:29 17:29 MCV 104 H (84-94) fl MCH 35 H (28-32) pg [place] % (Auto) 7.8 H (0.0-7.3) % D-Dimer (0-234) ng/mlDDU Carbon Dioxide 18 L (22-30) mmol/L Creatinine 1.8 H (0.8-1.5) mg/dL Total Creatine Kinase 213 H (55-170) units/L Total Protein 5.2 L (6.3-8.2) g/dL Albumin 3.6 L (3.9-5) g/dL HDL Cholesterol (40-59) mg/dL 10/16/17 10/17/17 Range/Units 18:35 05:14 MCV (84-94) fl MCH (28-32) pg [place] % (Auto) (0.0-7.3) % D-Dimer 359.4 H (0-234) ng/mlDDU Carbon Dioxide (22-30) mmol/L Creatinine (0.8-1.5) mg/dL Total Creatine Kinase (55-170) units/L Total Protein (6.3-8.2) g/dL Albumin (3.9-5) g/dL HDL Cholesterol 64 H (40-59) mg/dL
--- NOTE | 2017-10-17 12:01 | Consultation ---
History of Present Illness Consult date: 10/17/17 Requesting physician: GARRET WYMAN Consult reason: other (near syncope) Past History Past Medical History: hypertension, other (PUD) Past Surgical History: Other (carpal tunnel) Social history: , smoking Family history: hypertension Medications and Allergies Allergies Allergy/AdvReac Type Severity Reaction Status Date / Time No Known Allergies Allergy Verified 08/30/15 17:32 Home Medications Medication Instructions Recorded Confirmed Last Taken Type Multivit-Minerals/FA/Lycopene [One 1 each PO DAILY 12/17/16 10/17/17 12/16/16 History Daily Zevia Tablet] Aspirin [Aspirin BABY CHEW TAB] 81 mg PO QDAY #30 tab.chew 12/20/16 10/17/17 Unknown Rx Clopidogrel [Plavix] 75 mg PO QDAY #30 tablet 12/20/16 10/17/17 Unknown Rx HYDROcodone/APAP 5-325 [[place] 1 each PO Q6HR PRN #12 tablet 12/20/16 10/17/17 Unknown Rx 5/325] Isosorbide Mononitrate 20 mg PO BID #60 tablet 12/20/16 10/17/17 Unknown Rx Lovastatin [Altoprev] 40 mg PO QPM #30 tab.er.24h 12/20/16 10/17/17 Unknown Rx Metoprolol [Lopressor TAB] 12.5 mg PO BID #30 tablet 12/20/16 10/17/17 Unknown Rx Ranitidine HCl [Zantac 150 MG TAB] 150 mg PO DAILY #30 tablet 12/20/16 10/17/17 Unknown Rx Active Meds: Active Medications Acetaminophen (Tylenol) 650 mg PO Q4H PRN PRN Reason: Pain, Mild (1-3) Last Admin: 10/17/17 09:03 Dose: 650 mg Aspirin (Aspirin) 325 mg PO QDAY [facility] Last Admin: 10/17/17 09:06 Dose: 325 mg Bisacodyl (Dulcolax) 10 mg SC QDAY PRN PRN Reason: Constipation Famotidine (Pepcid) 10 mg PO BID [facility] Last Admin: 10/17/17 09:06 Dose: 10 mg Magnesium Hydroxide (Milk Of Magnesia) 30 ml PO Q4H PRN PRN Reason: Constipation Metoclopramide HCl (Reglan) 10 mg PO Q6H PRN PRN Reason: Nausea And Vomiting Ondansetron HCl (Zofran) 4 mg IV Q8H PRN PRN Reason: N/V unrelieved by Regsander Pravastatin Sodium (Pravachol) 20 mg PO QHS [facility] Last Admin: 10/16/17 22:06 Dose: 20 mg Promethazine HCl (Phenergan) 25 mg SC Q6H PRN PRN Reason: Nausea And Vomiting Sodium Chloride (Sodium Chloride Flush Syringe 10 Ml) 10 ml IV PRN PRN PRN Reason: LINE FLUSH Physical Examination Vital Signs Pulse Resp Pulse Ox 56 L 17 98 10/16/17 17:14 10/16/17 17:14 10/16/17 17:14 Results 10/16/17 17:29 10/16/17 17:29 Cardiac Enzymes 10/16/17 Range/Units 17:29 AST 22 (5-40) units/L Coagulation 10/16/17 Range/Units 17:29 PT 13.9 (12.2-14.9) Sec. INR 1.02 (0.87-1.13) Lipids 10/17/17 Range/Units 05:14 Triglycerides 53 (2-149) mg/dL Cholesterol 136 (50-199) mg/dL HDL Cholesterol 64 H (40-59) mg/dL Cholesterol/HDL Ratio 2.12 % CBC 10/16/17 Range/Units 17:29 WBC 9.8 (4.5-11.0) K/mm3 RBC 4.10 (3.65-5.03) M/mm3 Hgb 14.5 (11.8-15.2) gm/dl Hct 42.6 (35.5-45.6) % Plt Count 258 (140-440) K/mm3 Lymph # 2.1 (1.2-5.4) K/mm3 [place] # 0.8 (0.0-0.8) K/mm3 Eos # 0.1 (0.0-0.4) K/mm3 Baso # 0.0 (0.0-0.1) K/mm3 Comprehensive Metabolic Panel 10/16/17 Range/Units 17:29 Sodium 140 (137-145) mmol/L Potassium 4.1 (3.6-5.0) mmol/L Chloride 104.2 (98-107) mmol/L Carbon Dioxide 18 L (22-30) mmol/L BUN 14 (9-20) mg/dL Creatinine 1.8 H (0.8-1.5) mg/dL Glucose 85 (75-100) mg/dL Calcium 8.9 (8.4-10.2) mg/dL AST 22 (5-40) units/L ALT 35 (7-56) units/L Alkaline Phosphatase 40 (35-129) units/L Total Protein 5.2 L (6.3-8.2) g/dL Albumin 3.6 L (3.9-5) g/dL
--- NOTE | 2017-10-17 13:42 | Magnetic Resonance Report ---
MRI BRAIN WITHOUT CONTRAST: 10/16/17 20:21:00 CLINICAL: Stroke. COMPARISON: CT head 10/16/17 TECHNIQUE: Axial diffusion, T1, T2, gradient echo T2*, coronal and axial FLAIR and sagittal T1 sequences on a 1.5 Katia magnet. FINDINGS: The ventricles and sulci are normal for age. No restricted diffusion. Focal T2 hyperintensity in the left parietal lobe periventricular Y. matter on T2 and FLAIR. This correlates with a hypodensity on the CT and is consistent with a chronic lacunar infarct. A 2.5 x 1.9 x 1.2 cm extra-axial CSF density cyst of the posterior fossa is consistent with a benign arachnoid cyst. No other abnormal signal. No mass or mass effect. No hemorrhage, edema or extra-axial collection. Normal pituitary and optic chiasm. The brainstem and cerebellum are normal. Intact vascular flow voids. Normal sinuses. The orbits, and soft tissues are normal. Normal calvarium and skull base. IMPRESSION: 1. No evidence of acute/subacute infarct or hemorrhage. 2. A 6 mm left parietal white matter chronic lacunar infarct. 3. A 2.5 cm left posterior fossa benign arachnoid cyst.
--- NOTE | 2017-10-17 13:49 | Magnetic Resonance Report ---
MRA HEAD WITHOUT CONTRAST: 10/17/17 CLINICAL: Stroke. TECHNIQUE: Axial 3-D [id number] MR angiography of the [place] with review of axial source images. FINDINGS: Intact [place] with no aneurysm, stenosis or occlusion. Symmetric blood flow in the anterior, middle and posterior cerebral arteries. The anterior and posterior communicating arteries are well-demonstrated. Normal basilar and vertebral arteries. The right vertebral artery is dominant. IMPRESSION: Normal study.
[2017-10-17] MEDS: BABY ASPIRIN PO SCH (18:03)
[2017-10-17] MEDS: PRAVACHOL PO SCH (21:39)
[2017-10-17] MEDS: MONOKET PO SCH (21:39)
[2017-10-17] MEDS: LOPRESSOR PO SCH (21:41)
[2017-10-17] MEDS: NORCO 5/325 PO PRN (21:47)
[2017-10-17] MEDS ORDERED: ISOSORBIDE MONONITRATE 20 MG PO SCH (22:00)
--- NOTE | 2017-10-18 00:07 | Consultation ---
CARDIOLOGY CONSULTATION REPORT TIME: 3:49 p.m. REQUESTING PHYSICIANS: Ariel Stubbs MD and Mark Lee MD HISTORY OF PRESENT ILLNESS: A 52-year-old pleasant -[place] gentleman with a history of hyperlipidemia, chronic cigarette smoking, history of hypertension in the past, peptic ulcer disease, was admitted with weakness of extremities, loss of balance and also near syncopal episode. He has been having these episodes for the past 2 weeks. This is associated with some blurring of vision and sweating. Cardiac enzymes are negative. His CAT scan of the head was normal. His MRI revealed a chronic lacunar infarct involving the left parietal lobe, 6 mm size and an arachnoid cyst is also seen. His echocardiogram revealed normal chamber dimensions, normal left ventricular systolic function with EF around 55-60% and no evidence of intracardiac shunt (bubble contrast study was negative). It also revealed mild mitral and mild tricuspid regurgitation. Right ventricular systolic pressure was mildly increased at 35 mmHg. PAST MEDICAL HISTORY: History of multiple medical problems as described above. His blood pressure is normal without any antihypertensive. He had a cardiac catheterization on 12/20/[address] Prado in this hospital, which revealed normal coronary arteries. He has had surgery for carpal tunnel syndrome in the past. SOCIAL HISTORY: Has been a chronic smoker for about 30 years. Recently, he had ____ number of cigarettes. He has been smoking about 8 cigarettes per day. Occasionally, he takes alcohol. No history of drug abuse. FAMILY HISTORY: His mother had myocardial infarction in her early 50s. Further details are not known at this time. ALLERGIES: None known. MEDICATIONS: Aspirin 325 mg p.o. daily, Pepcid 10 mg p.o. b.i.d., metoclopramide 10 mg p.o. q.6 hours p.r.n., pravastatin 20 mg p.o. daily. REVIEW OF SYSTEMS: CARDIOVASCULAR SYSTEM: As described in the history. NEUROLOGICAL: As described in the history. RENAL: History of chronic kidney disease. PULMONARY: Chronic cigarette smoking. BONE AND JOINTS: As described in the history. Review of rest of the 10 systems is negative. PHYSICAL EXAMINATION: GENERAL: A 52-year-old pleasant -[place] gentleman. VITAL SIGNS: He is afebrile, pulse 47 per minute regular; blood pressure 136/91 mmHg; respirations 18 per minute. NEUROLOGIC: He is alert and oriented x3. HEENT: Negative. NECK: Supple, no JVD, no bruit, no thyromegaly. HEART: PMI in the left fifth intercostal space in the midclavicular line, and is normal. No palpable thrills or heart sounds. Auscultation of the heart reveals S1, S2 heard. S3 and S4, grade 1/6 ejection systolic murmur is heard over the precardium. No rub. EXTREMITIES: Peripheral pulses felt. No edema. LUNGS: Bilateral air entry good and equal. No bronchial breathing, no wheezing. ABDOMEN: Soft, benign. No organomegaly. SKIN: Negative. BONE AND JOINTS: Negative. NEUROLOGICAL: No focal neurological deficit. LABORATORY DATA: As described in the history. Potassium normal. D-dimer mildly increased at 359 and HDL is 64. LDL is 74, triglycerides 53 (excellent numbers). CBC, platelet count is within normal limits. Bilateral carotid Doppler study pending at this time. V/Q lung scan is normal. IMPRESSION: 1. Acute cerebrovascular accident. 2. History of hypertension in the past. 3. Hyperlipidemia. 4. No evidence of intracardiac shunt by echocardiogram. 5. Normal coronary arteries by cardiac catheterization done in December 2016. 6. Multiple episodes of near syncope and generalized weakness. 7. Chronic left parietal lacunar infarct by MRI. 8. Light cigarette smoker. RECOMMENDATIONS: 1. To continue current medications including antiplatelet agents and antilipid agents. 2. The patient is strongly advised to quit cigarette smoking totally. Thank you again. We will follow. JOB# [id number] [facility]
[2017-10-18] MEDS: TYLENOL PO PRN (00:29)
[2017-10-18 04:48] LABS: Basophils % (Auto) 0.6 % (0.0-1.8); Eosinophils # (Auto) 0.2 K/mm3 (0.0-0.4); Eosinophils % (Auto) 2.8 % (0.0-4.3); Hematocrit 40.2 % (35.5-45.6); Hemoglobin 13.6 gm/dl (11.8-15.2); Lymphocytes # (Auto) 1.9 K/mm3 (1.2-5.4); Lymphocytes % (Auto) 23.8 % (13.4-35.0); Mean Corpuscular HGB Conc 34 % (32-34); Mean Corpuscular Hemoglobin 35 pg (28-32); Mean Corpuscular Volume 103 fl (84-94); Monocytes # (Auto) 0.6 K/mm3 (0.0-0.8); Monocytes % (Auto) 7.2 % (0.0-7.3); Platelet Count 265 K/mm3 (140-440); Red Cell Distribution Width 13.1 % (13.2-15.2)
[2017-10-18] MEDS: NORCO 5/325 PO PRN ×2 (05:02→20:03)
[2017-10-18 05:13] LABS: Alanine Aminotransferase 36 units/L (7-56); Albumin 3.5 g/dL (3.9-5); BUN/Creatinine Ratio 11; Blood Urea Nitrogen 10 mg/dL (9-20); Calcium 8.6 mg/dL (8.4-10.2); Hemolysis Index 6
[2017-10-18] MEDS ORDERED: LYCOPENE PO SCH (10:00)
[2017-10-18] MEDS ORDERED: MULTIVIT MINERALS PO SCH (10:00)
[2017-10-18] MEDS ORDERED: [UNRECOGNIZED DRUG - OTHER] PO SCH (10:00)
--- NOTE | 2017-10-18 10:09 | Progress Note ---
Assessment and Plan - TIA likely Migrain induce CVA protocol, CT Head was normal, MRI brain, MRA brain within normal Echo normal ejection fraction of 55-60% with no intracardiac shunt, Continue with aspirin, atorvastatin, PT OT evaluation and treatment - Severe Migrain Headache No amenable to sumatriptan Commence pt on Depakote, Riboflavin, and Narco - ARF (acute renal failure) with tubular necrosis IVF resuscitation therapy, monitor uop q shift, Renal Function improvement - Acidosis IVF resuscitation, suspect RTA, will continue to monitor, repeat bmp - Nicotine dependence unspecified, with withdrawal Smoking cessation counseling, supportive care. - DVT prophylaxis SCD to BLE while in bed. Subjective Date of service: 10/18/17 Principal diagnosis: syncope, TIA Interval history: Patient seen and examined. No overnight events reported. No chest pain shortness of breath. Objective - Exam Narrative Exam: Constitutional: Well-nourished well-developed. In no distress Head: Normocephalic atraumatic Eyes: Pupils are equal round and reactive to light Nose: No enlarged turbinates, no septal deviation. Mouth: Moist mucous membranes. Neck: Supple no thyromegaly. No bruit. No JVD Heart: Regular rate and rhythm, S1-S2 abnormal. No rubs murmurs or gallop Lungs: Clear to auscultation bilaterally no rales or rhonchi Abdomen: Soft, nontender. Bowel sound are present. Extremities: No edema no cyanosis and no clubbing. Neuro: Alert oriented Oriented x3. No focal sensory or motor deficit. Skin: No rashes no hyperemic spots Psychiatry: Euthymic.Calm. - Constitutional Vitals: Vital Signs - 12hr 10/18/17 10/18/17 10/18/17 00:49 05:29 08:21 Temperature 97.8 F 98.9 F Pulse Rate 100 H 54 L Respiratory 18 18 Rate Blood Pressure 119/84 133/64 [Left] O2 Sat by Pulse 99 100 95 Oximetry - Labs CBC & Chem 7: 10/18/17 04:27 10/18/17 04:27 Labs: Abnormal lab results 10/18/17 10/18/17 Range/Units 04:27 04:27 MCV 103 H (84-94) fl MCH 35 H (28-32) pg RDW 13.1 L (13.2-15.2) % Total Protein 5.5 L (6.3-8.2) g/dL Albumin 3.5 L (3.9-5) g/dL
[2017-10-18] MEDS: BABY ASPIRIN PO SCH (11:07)
[2017-10-18] MEDS: THERAGRAN Tab PO SCH (11:07)
[2017-10-18] MEDS: PEPCID PO SCH ×2 (11:07→21:51)
[2017-10-18] MEDS: MONOKET PO SCH ×2 (11:07→21:50)
[2017-10-18] MEDS: LOPRESSOR PO SCH ×2 (11:08→21:51)
[2017-10-18] MEDS: ASPIRIN PO SCH (11:08)
[2017-10-18] MEDS: PLAVIX PO SCH (11:08)
--- NOTE | 2017-10-18 11:14 | Progress Note ---
Assessment and Plan possible tia hypotension acute renal insufficency smoker rec: pt has no pauses, not orstatic, cont current management. Subjective Date of service: 10/18/17 Principal diagnosis: syncope, TIA Interval history: pt has no more slurred speech, has pain above eye Objective Vital Signs Temp Pulse Resp BP BP Pulse Ox 10/18/17 08:52 62 18 132/98 100 10/18/17 08:21 95 10/18/17 08:00 98.6 F 10/18/17 05:29 98.9 F 54 L 18 133/64 100 10/18/17 00:49 97.8 F 100 H 18 119/84 99 10/18/17 00:17 119/84 10/17/17 21:48 58 L 10/17/17 21:46 99 10/17/17 21:41 58 L 132/97 10/17/17 20:19 98.3 F 61 18 132/97 99 10/17/17 19:33 68 132/97 98 10/17/17 17:11 98.3 F 66 14 128/83 100 10/17/17 13:00 47 L 10/17/17 12:50 97.9 F 47 L 16 136/91 99 - Physical Examination General: No Apparent Distress HEENT: Positive: PERRL, EOMI Neck: Positive: neck supple Cardiac: Positive: Reg Rate and Rhythm Lungs: Positive: clear to auscultation Neuro: Positive: Grossly Intact Abdomen: Positive: Unremarkable Extremities: Absent: edema - Labs and Meds Cardiac Enzymes 10/18/17 Range/Units 04:27 AST 29 (5-40) units/L CBC 10/18/17 Range/Units 04:27 WBC 7.8 (4.5-11.0) K/mm3 RBC 3.90 (3.65-5.03) M/mm3 Hgb 13.6 (11.8-15.2) gm/dl Hct 40.2 (35.5-45.6) % Plt Count 265 (140-440) K/mm3 Lymph # 1.9 (1.2-5.4) K/mm3 [place] # 0.6 (0.0-0.8) K/mm3 Eos # 0.2 (0.0-0.4) K/mm3 Baso # 0.0 (0.0-0.1) K/mm3 Comprehensive Metabolic Panel 10/18/17 Range/Units 04:27 Sodium 140 (137-145) mmol/L Potassium 3.6 (3.6-5.0) mmol/L Chloride 104.8 (98-107) mmol/L Carbon Dioxide 26 D (22-30) mmol/L BUN 10 (9-20) mg/dL Creatinine 0.9 (0.8-1.5) mg/dL Glucose 93 (75-100) mg/dL Calcium 8.6 (8.4-10.2) mg/dL AST 29 (5-40) units/L ALT 36 (7-56) units/L Alkaline Phosphatase 46 (35-129) units/L Total Protein 5.5 L (6.3-8.2) g/dL Albumin 3.5 L (3.9-5) g/dL - Imaging and Cardiology Echo: report reviewed (normal lv function, no intra cardiac shunt negative bubble study ) Cardiac cath: report reviewed (12/2016 normal coronaries and normal lv function ) - Telemetry EKG Rhythm: Sinus Bradycardia (no pauses)
[2017-10-18] MEDS ORDERED: BENADRYL PO PRN (21:03)
[2017-10-18] MEDS: PRAVACHOL PO SCH (21:52)
[2017-10-19] MEDS: NORCO 5/325 PO PRN (04:26)
[2017-10-19 05:51] LABS: Basophils % (Auto) 0.4 % (0.0-1.8); Eosinophils % (Auto) 0.6 % (0.0-4.3); Hemoglobin 13.5 gm/dl (11.8-15.2); Lymphocytes # (Auto) 1.1 K/mm3 (1.2-5.4); Lymphocytes % (Auto) 15.6 % (13.4-35.0); Mean Corpuscular HGB Conc 35 % (32-34); Mean Corpuscular Hemoglobin 35 pg (28-32); Mean Corpuscular Volume 102 fl (84-94); Monocytes # (Auto) 0.5 K/mm3 (0.0-0.8); Monocytes % (Auto) 7.2 % (0.0-7.3); Platelet Count 252 K/mm3 (140-440); Red Blood Count 3.81 M/mm3 (3.65-5.03); Red Cell Distribution Width 13.2 % (13.2-15.2)
[2017-10-19 06:15] LABS: Alanine Aminotransferase 26 units/L (7-56); Albumin 3.3 g/dL (3.9-5); BUN/Creatinine Ratio 6; Blood Urea Nitrogen 5 mg/dL (9-20); Calcium 8.7 mg/dL (8.4-10.2); Hemolysis Index 8
[2017-10-19] MEDS: THERAGRAN Tab PO SCH (09:26)
[2017-10-19] MEDS: BABY ASPIRIN PO SCH (09:27)
[2017-10-19] MEDS: PEPCID PO SCH (09:27)
[2017-10-19] MEDS: PLAVIX PO SCH (09:27)
[2017-10-19] MEDS: MONOKET PO SCH (09:27)
[2017-10-19] MEDS: LOPRESSOR PO SCH (09:29)
[2017-10-19] MEDS: TYLENOL PO PRN (09:36)
[2017-10-19 12:34] VITALS: BP 148/91
--- NOTE | 2017-10-19 13:59 | Discharge Summary ---
Providers - Providers Date of Admission: 10/16/17 20:21 Date of discharge: 10/19/17 Attending physician: LUIS FARIAS 10/16/17 18:37 Consult to Physician [CONS] Urgent Comment: Consulting Provider: CARMELA HERNANDEZ Physician Instructions: Reason For Exam: near syncope 10/16/17 20:10 Occupational Therapy Evaluate and Treat [CONS] Routine Comment: Reason For Exam: Neuro deficits Physical Therapy Evaluation and Treat [CONS] Routine Comment: Reason For Exam: Neuro deficits Primary care physician: CONCRETE BUSTER OPERATOR Hospitalization Condition: Good Hospital course: Patient admitted with possible TIA. Workup was negative. CT scan had negative MRI head negative echocardiogram unremarkable. It was thought to be secondary to smoking anxiety and migraine headaches. Patient will resume Depakote for migraines I did give him some Xanax for anxiety and patient has been educated to stop smoking. Disposition: DC- TO HOME OR SELFCARE Core Measure Documentation - Palliative Care Palliative Care/ Comfort Measures: Not Applicable - Core Measures Any of the following diagnoses?: none Exam - Constitutional Vitals: Temp Pulse Resp BP Pulse Ox 97.8 F 53 L 14 148/91 100 10/19/17 13:26 10/19/17 13:26 10/19/17 13:26 10/19/17 13:26 10/19/17 13:26 General appearance: Present: no acute distress, well-nourished - EENT Eyes: Present: PERRL ENT: hearing intact, clear oral mucosa - Neck Neck: Present: supple, normal ROM - Respiratory Respiratory effort: normal Respiratory: bilateral: CTA - Cardiovascular Heart Sounds: Present: S1 & S2. Absent: rub, click - Extremities Extremities: pulses symmetrical, No edema Peripheral Pulses: within normal limits - Abdominal General gastrointestinal: Present: soft, non-tender, non-distended, normal bowel sounds Male genitourinary: Present: normal - Integumentary Integumentary: Present: clear, warm, dry - Musculoskeletal Musculoskeletal: gait normal, strength equal bilaterally - Psychiatric Psychiatric: appropriate mood/affect, intact judgment & insight - Neurologic Neurologic: CNII-XII intact, moves all extremities Plan Activity: no restrictions Weight Bearing Status: Full Weight Bearing Diet: regular Follow up with: PRIMARY CARE, [Primary Care Provider] - 3-5 Days Prescriptions: Aspirin [Aspirin BABY CHEW TAB] 81 mg PO QDAY #30 tab.chew Clopidogrel [Plavix] 75 mg PO QDAY #30 tablet HYDROcodone/APAP 5-325 [[place] 5-325 mg TAB] 1 each PO Q6HR PRN #12 tablet PRN Reason: Pain Isosorbide Mononitrate 20 mg PO BID #60 tablet Metoprolol [Lopressor TAB] 12.5 mg PO BID #30 tablet Ranitidine HCl [Zantac 150 MG TAB] 150 mg PO DAILY #30 tablet
--- NOTE | 2017-10-21 08:28 | Vascular Lab Report ---
CAROTID DUPLEX STUDY: RIGHT PSVEDV CCA PROX:[id number] CCA DIST:[id number] ICA PROX:4213 ICA MID:7129 ICA DIST:[id number] ECA: 52 VERT: 52 21 LEFT PSVEDV CCA PROX:[id number] CCA DIST:7514 ICA PROX:468 ICA MID:8032 ICA DIST:8436 ECA: 29 VERT: 11 2 REASON FOR EXAM: Stroke. COMMENTS ON THE RIGHT: Doppler frequency analysis is consistent with 16 to 49 percent diameter reduction of the internal carotid artery. Minimal amount of plaque is seen. The common carotid artery is patent. The external carotid artery is patent. The vertebral artery has antegrade flow. COMMENTS ON THE LEFT: Doppler frequency analysis is consistent with 16 to 49 percent diameter reduction of the internal carotid artery. Minimal amount of plaque is seen. The common carotid artery is patent. The external carotid artery is patent. The vertebral artery has antegrade flow. IMPRESSION: Less than 50% diameter reduction in the internal carotid arteries bilaterally.
== END 2017-10-19 15:59 | disposition home or self-care (01) | DRG 102 ==
LOC: ED 17:16 → 4A 20:21
PROVIDERS: ADMIT Internal Medicine; ATTEND Internal Medicine
DX: G43.909 Migraine, unspecified, not intractable, without status migrainosus (principal); N17.0 Acute kidney failure with tubular necrosis; E87.2 Acidosis; F17.203 Nicotine dependence unspecified, with withdrawal; F41.9 Anxiety disorder, unspecified; R55 Syncope and collapse; E78.5 Hyperlipidemia, unspecified; I95.9 Hypotension, unspecified; I10 Essential (primary) hypertension; Z87.11 Personal history of peptic ulcer disease; Z71.6 Tobacco abuse counseling; Z82.49 Family history of ischemic heart disease and other diseases of the circulatory system; Z79.82 Long term (current) use of aspirin; Z79.899 Other long term (current) drug therapy; I25.2 Old myocardial infarction
CPT/HCPCS: 36415; 70450; 70544; 70551; 71045; 78582; 80053; 80061; 82550; 82962; 83735; 84484; 85025; 85379; 85610; 93005; 93010; 93306; 93880; 95819; A9270-GY; A9540; A9558; J2405; J7030

== ENCOUNTER 2017-12-24 16:04 | Emergency (ER) | payer OTHER ==
--- NOTE | 2017-12-24 20:54 | XRay Report ---
FINAL REPORT PROCEDURE: Right toes. TECHNIQUE: Three views. HISTORY: trauma, pain, swelling great toe COMPARISON: No prior studies are available for comparison. FINDINGS: There is a comminuted fracture involving the proximal phalanx of the great toe. There is mild displacement of fragments. There is no definite angulation. The remaining bones appear intact. The joint spaces appear satisfactory. The soft tissues are unremarkable. IMPRESSION: Comminuted fracture of the proximal phalanx of the great toe.
--- NOTE | 2017-12-24 21:27 | Emergency Department Report ---
ED Lower Extremity HPI - General Chief Complaint: Extremity Injury, Lower Stated Complaint: LFT PINKY TOE PAIN Time Seen by Provider: 12/24/17 21:20 Source: patient Mode of arrival: Ambulatory Limitations: No Limitations - History of Present Illness Initial Comments: This is 52-year-old male here complaining of pain to his left great toe. Patient said he hit his left great toe on furniture in his home 5 weeks ago. Patient states that he was an accident and that he did not come to the emergency room because he did not think that it was bad but over time its been swollen and getting more red and more painful. He said the other toes were also swollen but there better but his great toe remains swollen and red. Pain is 10/10 and throbbing. Worse with touch and no relief. He said he took over- the-counter medication without any help. Denies any numbness or tingling in. Denies any radiation of pain proximally. Patient reports that he limps when he walks due to increased pain. MD Complaint: foot injury (left great toe) Onset/Timin -: week(s) Injury: Toes: Left (great toe injury) Type of Injury: blunt Place: home Severity: severe Severity scale (0 -10): 10 Improves With: nothing Worsens With: weight bearing, movement, palpation Context: other (accidentally bumped his toe on [place] in kitchen) Associated Symptoms: snap/pop sensation, swelling, able to partially bear weight. denies: numbness, tingling Treatments Prior to Arrival: other ([id number] pain medication) - Related Data Home Medications Medication Instructions Recorded Confirmed Last Taken Multivit-Minerals/FA/Lycopene [One 1 each PO DAILY 12/17/16 10/17/17 12/16/16 Daily Best Response Strategies's Health Tablet] Previous Rx's Medication Instructions Recorded Last Taken Type Lovastatin [Altoprev] 40 mg PO QPM #30 tab.er.24h 12/20/16 Unknown Rx ALPRAZolam [Xanax] 0.5 mg PO Q8HR PRN #30 tablet 10/19/17 Unknown Rx Aspirin [Aspirin BABY CHEW TAB] 81 mg PO QDAY #30 tab.chew 10/19/17 Unknown Rx Clopidogrel [Plavix] 75 mg PO QDAY #30 tablet 10/19/17 Unknown Rx HYDROcodone/APAP 5-325 [[place] 1 each PO Q6HR PRN #12 tablet 10/19/17 Unknown Rx 5-325 mg TAB] HYDROcodone/APAP 5-325 [[place] 2 each PO Q6H PRN tablet 10/19/17 Unknown Rx 5-325 mg TAB] ISOSORBIDE MONOnitrate [Monoket] 20 mg PO BID tablet 10/19/17 Unknown Rx Isosorbide Mononitrate 20 mg PO BID #60 tablet 10/19/17 Unknown Rx Metoprolol [Lopressor TAB] 12.5 mg PO BID #30 tablet 10/19/17 Unknown Rx Ranitidine HCl [Zantac 150 MG TAB] 150 mg PO DAILY #30 tablet 10/19/17 Unknown Rx Clindamycin [Clindamycin CAP] 300 mg PO Q8H 10 Days #30 cap 12/24/17 Unknown Rx HYDROcodone/ACETAMINOPHEN [[place] 1 each PO Q6H PRN #12 tablet 12/24/17 Unknown Rx 5-325 Tablet] Ibuprofen [Motrin] 600 mg PO Q8H PRN #12 tablet 12/24/17 Unknown Rx Allergies Allergy/AdvReac Type Severity Reaction Status Date / Time No Known Allergies Allergy Verified 08/30/15 17:32 ED Review of Systems ROS: Stated complaint: LFT PINKY TOE PAIN Other details as noted in HPI Constitutional: denies: chills, fever Respiratory: denies: cough, shortness of breath, wheezing Cardiovascular: denies: chest pain, palpitations, edema, syncope Musculoskeletal: joint swelling, arthralgia. denies: back pain Skin: change in color (redness to left great toe). denies: rash, lesions Neurological: abnormal gait. denies: numbness, paresthesias, vertigo ED Past Medical Hx - Past Medical History Previous Medical History?: Yes Hx Hypertension: Yes (BORDERLINE-NO MEDS) Hx Heart Attack/AMI: Yes Hx Congestive Heart Failure: No Hx Diabetes: No Hx Seizures: Yes Hx Asthma: No Hx COPD: No Additional medical history: ULCERS - Surgical History Past Surgical History?: Yes Additional Surgical History: carpal tunnel - Family History Family history: hypertension - Social History Smoking Status: Current Every Day Smoker Substance Use Type: None - Medications Home Medications: Home Medications Medication Instructions Recorded Confirmed Last Taken Type Multivit-Minerals/FA/Lycopene [One 1 each PO DAILY 12/17/16 10/17/17 12/16/16 History Daily Best Response Strategies'[place] Tablet] Lovastatin [Altoprev] 40 mg PO QPM #30 tab.er.24h 12/20/16 10/17/17 Unknown Rx ALPRAZolam [Xanax] 0.5 mg PO Q8HR PRN #30 tablet 10/19/17 Unknown Rx Aspirin [Aspirin BABY CHEW TAB] 81 mg PO QDAY #30 tab.chew 10/19/17 Unknown Rx Clopidogrel [Plavix] 75 mg PO QDAY #30 tablet 10/19/17 Unknown Rx HYDROcodone/APAP 5-325 [[place] 1 each PO Q6HR PRN #12 tablet 10/19/17 Unknown Rx 5-325 mg TAB] HYDROcodone/APAP 5-325 [[place] 2 each PO Q6H PRN tablet 10/19/17 Unknown Rx 5-325 mg TAB] ISOSORBIDE MONOnitrate [Monoket] 20 mg PO BID tablet 10/19/17 Unknown Rx Isosorbide Mononitrate 20 mg PO BID #60 tablet 10/19/17 Unknown Rx Metoprolol [Lopressor TAB] 12.5 mg PO BID #30 tablet 10/19/17 Unknown Rx Ranitidine HCl [Zantac 150 MG TAB] 150 mg PO DAILY #30 tablet 10/19/17 Unknown Rx Clindamycin [Clindamycin CAP] 300 mg PO Q8H 10 Days #30 cap 12/24/17 Unknown Rx HYDROcodone/ACETAMINOPHEN [[place] 1 each PO Q6H PRN #12 tablet 12/24/17 Unknown Rx 5-325 Tablet] Ibuprofen [Motrin] 600 mg PO Q8H PRN #12 tablet 12/24/17 Unknown Rx ED Physical Exam - General Limitations: No Limitations General appearance: alert, in no apparent distress - Head Head exam: Present: atraumatic, normocephalic, normal inspection - Eye Eye exam: Present: normal appearance - Neck Neck exam: Present: normal inspection, full ROM - Respiratory Respiratory exam: Present: normal lung sounds bilaterally. Absent: respiratory distress - Cardiovascular Cardiovascular Exam: Present: regular rate, normal rhythm, normal heart sounds - Extremities Exam Extremities exam: Present: tenderness (tenderness at left great toe.), normal capillary refill, joint swelling (left great toe proximally and distally at phalanx.), other (No cce. + 2 pulses in all extremities, no neurovascular compromise except for left great toe with swelling, tenderness to palpate erythema and limited range of motion.). Absent: normal inspection (normal inspection except left great toe with redness and swelling.), full ROM (patient with full range of motion to the toes of both feet except for his left great toe he has limited range of motion due to pain and swelling.), pedal edema - Expanded Lower Extremity Exam Left Hip exam: Present: normal inspection, full ROM, pelvic stability. Absent: tenderness, swelling, abrasion, laceration, ecchymosis, deformity, crepidus, dislocation, erythema, external rotation, internal rotation, shortening Upper Leg exam: Present: normal inspection, full ROM. Absent: tenderness, swelling, abrasion, laceration, ecchymosis, deformity, crepidus, dislocation, erythema Knee exam: Present: normal inspection, full ROM, full knee extension. Absent: tenderness, swelling, abrasion, laceration, ecchymosis, deformity, crepidus, dislocation, erythema, effusion Lower Leg exam: Present: normal inspection, full ROM. Absent: tenderness, swelling, abrasion, laceration, ecchymosis, deformity, crepidus, dislocation, erythema, palpable cord Ankle exam: Present: normal inspection, full ROM. Absent: tenderness, swelling , abrasion, deformity, crepidus, dislocation, erythema Foot/Toe exam: Present: tenderness (left great toe otherwise normal), swelling ( great toe otherwise normal), erythema (left great toe otherwise normal). Absent : normal inspection (normal to inspection except for left great toe with redness and swelling.), full ROM (full range of motion to the toes of both feet except for left great toe with limited range of motion due to swelling, and pain.), abrasion, laceration, ecchymosis, deformity, crepidus, dislocation, amputation, puncture wound, foreign body, calcaneal tenderness, tenderness at base of 5th metatarsal, nail avulsion, subungual hematoma Neuro vascular tendon exam: Present: significant pain with passive ROM of distal joint (left great toe). Absent: no vascular compromise, pulse deficit, abnormal cap refill, motor deficit, sensory deficit, tendon deficit, extremity cold to touch, pallor, abnormal 2-point discrimination, decreased fine/light touch, foot drop, peroneal nerve deficit Gait: Positive: antalgic - Neurological Exam Neurological exam: Present: alert, oriented X3, normal gait, reflexes normal. Absent: motor sensory deficit - Psychiatric Psychiatric exam: Present: normal affect, normal mood - Skin Skin exam: Present: warm, dry, intact, normal color (except for left great toe erythema), erythema (erythema with increase in temperature to left great toe. ) . Absent: rash, abrasion ED Course Vital Signs 12/24/17 12/24/17 16:16 21:44 Temperature 98.7 F Pulse Rate 57 L Respiratory 16 18 Rate Blood Pressure 109/80 O2 Sat by Pulse 98 Oximetry - Reevaluation(s) Reevaluation #1: 12/24/17 21:40 Patient given Toradol 60 mg IM in emergency room. He has comminuted fracture proximal length of great toe. Reevaluation #2: 12/24/17 22:09 Patient is stable his toe is better with splinting. Postop shoe and crutches. Please refer to procedure note for details. Pain is better - Orthopedic Splinting/Casting Injury #1 Side: left Lower Extremity Injury Location: toe (great toe) Lower Extremity Immobilizer: post-op shoe Other Orthopedic Equipment: other (makeshift splint with tongue blade place on a part of great toe and between her great toe and second toe left foot. Great toe and second toe wrapped with Ladarius and postop shoe placed. Patient given crutches.) ED Lower Extremity MDM - Radiology Data Radiology results: report reviewed X-ray of right great toe dictated by radiologist and report reviewed by myself. Please see detail report below. Patient: JACOBO MILLER MR#: [id number] : 1965 Acct:[id number] Age/Sex: 52 / M ADM Date: 12/24/17 Loc: ED Attending Dr: Ordering Physician: PAVEL PINTO MD Date of Service: 12/24/17 Procedure(s): XR toe(s) 2+V RT Accession Number(s): [id number] cc: ED MD BLAIR Fluoro Time In Minutes: FINAL REPORT PROCEDURE: Right toes. TECHNIQUE: Three views. HISTORY: trauma, pain, swelling great toe COMPARISON: No prior studies are available for comparison. FINDINGS: There is a comminuted fracture involving the proximal phalanx of the great toe. There is mild displacement of fragments. There is no definite angulation. The remaining bones appear intact. The joint spaces appear satisfactory. The soft tissues are unremarkable. IMPRESSION: Comminuted fracture of the proximal phalanx of the great toe. Transcribed By: DALTON Dictated By: GARRET HUFF MD Electronically Authenticated By: GARRET HUFF MD Signed Date/Time: 12/24/172052 DD/ 52 TD/TT: 12/24/172052 - Medical Decision Making This is a 52-year-old male he reports that he injured his left great toe 5 weeks ago and he is now seeking in medical attention because he said his nose and any better it is more red and swollen and increased pain. Diagnostic: X-ray of the left great toe revealed comminuted fracture of the proximal phalanx of the great toe Assessment/plan 1: Left great toe injury with closed fracture proximal phalanx-post splint, postop shoe and crutches. Pain is better and referred to orthopedics 2: Arthralgia left great toe-patient given Toradol 60 mg and emergency room and pain is better. I will send him home on Cambridge and Motrin. 3: Mild cellulitis left great toe-patient would increase redness and warmth to toe when compared to other toes to both feet. Suspect cellulitis from long- standing fracture with delayed treatment. Patient will be given Keflex prescription. I discussed with patient that he has a fracture of his big toe that has been there for 5 weeks and he could have some chronic pain in that area due to delay in seeking treatment. I discussed with him that he will need to follow-up with orthopedic doctor for further management and evaluation and he needs to keep splint on until he is seen by orthopedic doctor. I also told him that he needs to wear Ortho shoe and elevates his foot as much as he can when he sitting down. Patient voiced understanding. I discussed with him that I suspect that he has a mild infection of his toe due to delayed treatment. I told him to keep affected area clean and dry and if he noticed area getting worse redness, fever and/or chills darkening of toe and restriction in movement to return to the emergency room [facility] otherwise follow up with orthopedic in 2 days. He voiced understanding and patient discharged home with prescription for Motrin, Keflex and Cambridge. Pain is better status post splinting and Toradol. - Differential Diagnosis FX vs dislocation, contusion, MSK pain Critical care attestation.: If time is entered above; I have spent that time in minutes in the direct care of this critically ill patient, excluding procedure time. ED Disposition Clinical Impression: Cellulitis of great toe of left foot Fracture of great toe, left, closed Qualifiers: Encounter type: initial encounter Phalanx: proximal Fracture alignment: displaced Qualified Code(s): S92.412A - Displaced fracture of proximal phalanx of left great toe, initial encounter for closed fracture Disposition: - TO HOME OR SELFCARE Is pt being admited?: No Does the pt Need Aspirin: No Condition: Stable Instructions: Toe Fracture (ED), Cellulitis (ED) Additional Instructions: keep affected area clean and dry. Do not remove splint from left great toe until you see orthopedic doctor. Wear postop shoe when up and walking Please follow up with orthopedic doctor in 2 days regarding fractured that has been there for 5 weeks. Take Motrin for mild to moderate pain in the status medication with food as a cause irritation to start line in and also Cambridge for severe pain. Please do not drive or operate heavy machinery while taking Cambridge as it causes drowsiness. If your left great toe become darker in color, increase in swelling, restriction in movement and redness increased pain to left foot, please return to the emergency room [facility] Prescriptions: Clindamycin [Clindamycin CAP] 300 mg PO Q8H 10 Days #30 cap HYDROcodone/ACETAMINOPHEN [[place] 5-325 Tablet] 1 each PO Q6H PRN #12 tablet PRN Reason: severe pain Ibuprofen [Motrin] 600 mg PO Q8H PRN #12 tablet PRN Reason: mild to moderate pain Referrals: PRIMARY MD ANDERSON [Primary Care Provider] - 12/26/17 ISHA SMALL MD [Staff Physician] - 12/26/17 Forms: Work/School Release Form(ED)
[2017-12-24] MEDS ORDERED: TORADOL IM ONE (21:36)
[2017-12-24 22:36] VITALS: BP 124/89
== END 2017-12-24 22:35 | disposition home or self-care (01) ==
LOC: ED 16:04
DX: S92.412A Displaced fracture of proximal phalanx of left great toe, initial encounter for closed fracture (principal); L03.032 Cellulitis of left toe; I10 Essential (primary) hypertension; F17.200 Nicotine dependence, unspecified, uncomplicated; I25.2 Old myocardial infarction; W22.8XXA Striking against or struck by other objects, initial encounter; Y93.89 Activity, other specified; Y92.009 Unspecified place in unspecified non-institutional (private) residence as the place of occurrence of the external cause; Y99.8 Other external cause status
CPT/HCPCS: 73660; 96372; 99283; J1885

== ENCOUNTER 2019-01-26 09:34 | Outpatient (CLI) | payer OTHER ==
--- NOTE | 2019-01-26 10:39 | XRay Report ---
LEFT ELBOW 2 VIEW(S) INDICATION / CLINICAL INFORMATION: LEFT PAIN IN ELBOW COMPARISON: None available. FINDINGS: Evaluation is limited by the absence of an oblique view. BONES / JOINT(S): No acute fracture or subluxation identified within limitations of study. No signifi cant arthritis. Olecranon enthesopathy at the triceps tendon insertion is noted. SOFT TISSUES: No significant abnormality. Signer Name: Jaime Suh MD Signed: 01/26/2019 10:35 AM Workstation Name: [id number]
== END 2019-01-26 09:35 | disposition home or self-care (01) ==
LOC: XRAY 09:34
PROVIDERS: ATTEND Internal Medicine
DX: M25.522 Pain in left elbow (principal); M77.8 Other enthesopathies, not elsewhere classified; F17.200 Nicotine dependence, unspecified, uncomplicated; I10 Essential (primary) hypertension